=== PATIENT | female | born 1940 | race Caucasian/White ===

== ENCOUNTER 2017-05-08 13:43 | Emergency (ER) | payer OTHER ==
[~2017-05-08] VITALS: Ht 148.6 cm; Wt 55.5 kg
[~2017-05-08 13:43] MED LIST: ACETAMINOPHEN/H1 TA6 PO; ACT15 PO; ACT30 PO; ATORVASTATIN CA40 M1 PO; BG MC; CARVEDILOL25 M1 PO; COL100 PO; CORE25 PO; CYCLOBENZAPRINE5 MG PO; DEXPF IV; DUL10S RC; EDARBI; EDARBI80 MG PO; FER300 PO; FLEXERIL10 MG PO; FUROSEMIDE40 MG PO; GLIPIZIDE2.5 M1 PO; GLIPIZIDE5 MG; GLU5 PO; GOOD SENSE ASPI81 M3 PO; HUMULIN R100 U/1 M1 SC; L40I IV; LAC30L PO; LASIX40 MG PO; LEVOTHYROXIN0.075 M2 PO; LOVASTATIN40 MG PO; LOVAZA1 G1 PO; MIRUD PO; NEP PO; OMEPRAZOLE DR20 M1; OMEPRAZOLE DR20 M1 PO; PEP20 PO; PRI20 PO; PRO30 PO; RENA-VITE1 TAB PO; RENVELA800 M1 PO; TYL325 PO; VITC PO; ZES10 PO; ZES20 PO; ZOFI IV; [UNRECOGNIZED DRUG - OTHER]; [UNRECOGNIZED DRUG - OTHER] PO
[2017-05-08 13:46] VITALS: Ht 148.6 cm; Wt 55.5 kg
[2017-05-08 15:05] LABS: CALCIUM 9.3 mg/dL (8.5-10.1); CARBON DIOXIDE 27.8 mmol/L (21-32); CHLORIDE SERUM 97 mmol/L (98-107); CREATININE SERUM 2.1 mg/dL (0.6-1.0); GLUCOSE SERUM 89 mg/dL (74-106); POTASSIUM SERUM 3.6 mmol/L (3.5-5.1); SODIUM SERUM 133 mmol/L (136-145)
[2017-05-08 15:19] LABS: PLATELET COUNT 103 x10^3mcL (130-400)
[2017-05-08 15:58] LABS: BAND NEUTROPHIL 1 % (0-10); BASOPHIL 0 % (0-2); METAMYELOCTE 2 % (0-2); MONOCYTE 8 % (0-7); SEGMENTED NEUTROPHILS 68 % (37-75)
[2017-05-08 16:00] LABS: rbc morphology (normal/abnorm) ABNORMAL (NORMAL); target cell (codocyte) 2+
[2017-05-08 16:21] VITALS: BP 145/99
== END 2017-05-08 16:44 | disposition home or self-care (01) ==
LOC: ED 13:43
PROVIDERS: Emergency Medicine
DX: T82.838A Hemorrhage due to vascular prosthetic devices, implants and grafts, initial encounter (principal); E11.22 Type 2 diabetes mellitus with diabetic chronic kidney disease; I13.2 Hypertensive heart and chronic kidney disease with heart failure and with stage 5 chronic kidney disease, or end stage renal disease; I50.9 Heart failure, unspecified; N18.6 End stage renal disease; Z99.2 Dependence on renal dialysis; Y92.89 Other specified places as the place of occurrence of the external cause; E03.9 Hypothyroidism, unspecified; E78.00 Pure hypercholesterolemia, unspecified; I73.9 Peripheral vascular disease, unspecified
CPT/HCPCS: 36415

== ENCOUNTER 2017-06-06 17:59 | Inpatient (IN) | payer OTHER ==
[~2017-06-06] VITALS: Ht 144.8 cm; Wt 57.0 kg
[2017-06-06 18:06] VITALS: Ht 144.8 cm; Wt 57.0 kg
[2017-06-06 19:00] LABS: BASOPHIL % 0.6 % (0-2); PLATELET COUNT 130 x10^3mcL (130-400)
[2017-06-06 19:01] LABS: RED CELL DISTRIBUTION WIDTH 17.8 % (11.5-14.5)
[2017-06-06 19:15] LABS: CALCIUM 9.1 mg/dL (8.5-10.1); CARBON DIOXIDE 31.5 mmol/L (21-32); CHLORIDE SERUM 92 mmol/L (98-107); CREATININE SERUM 3.3 mg/dL (0.6-1.0); GLUCOSE SERUM 159 mg/dL (74-106); POTASSIUM SERUM 4.4 mmol/L (3.5-5.1); SODIUM SERUM 134 mmol/L (136-145)
[2017-06-06 19:19] LABS: ALBUMIN 3.8 g/dL (3.4-5.0); ALKALINE PHOSPHATASE 103 U/L (46-116); ALT/SGPT 14 U/L (14-59); AST/SGOT 24 U/L (15-37); BILIRUBIN TOTAL 0.9 mg/dL (0.20-1.00)
[2017-06-06 19:20] LABS: TOTAL PROTEIN, SERUM 8.6 g/dL (6.4-8.2)
[2017-06-06] MEDS ORDERED: GOOD SENSE OMEP20 MG PO (19:38)
[2017-06-06] MEDS ORDERED: CARVEDILOL6.25 M1 PO (19:39)
[2017-06-06] MEDS ORDERED: GLIPIZIDE2.5 M1 PO (19:39)
[2017-06-06] MEDS ORDERED: TIROSINT75 MC1 PO (19:39)
[2017-06-06] MEDS ORDERED: ACT30 PO (19:39)
[2017-06-06] MEDS ORDERED: LOSARTAN POTASS25 M1 PO (19:40)
[2017-06-06] MEDS ORDERED: PRO60 PO (19:41)
[2017-06-06] MEDS ORDERED: RENA-VITE1 TAB PO (19:41)
[2017-06-06] MEDS ORDERED: FUROSEMIDE40 MG PO (19:41)
[2017-06-06] MEDS ORDERED: LOVAZA1 G1 PO (19:41)
[2017-06-06] MEDS ORDERED: STOOL SOFT-STI1 EACH PO (19:42)
[2017-06-06] MEDS ORDERED: RENVELA800 M1 PO (19:42)
[2017-06-06] MEDS ORDERED: LOVASTATIN40 MG PO (19:42)
[2017-06-06 20:08] VITALS: BP 165/109
[2017-06-06 20:24] LABS: FREE T4 1.92 ng/dL (0.76-1.46)
[2017-06-06 20:26] LABS: FREE THYROXINE INDEX 5.4 ug/dL (1.4-4.5); T4(THYROXINE) 15.8 ug/dL (4.7-13.3)
[2017-06-06 21:13] LABS: MAGNESIUM 2.5 mg/dL (1.8-2.4); PHOSPHOROUS 3.4 mg/dL (2.5-4.9)
[2017-06-06 21:16] LABS: CHOLESTEROL/HDL RATIO 1.6
[2017-06-06 21:26] LABS: T3 TOTAL 0.77 ng/mL
[2017-06-07 03:28] LABS: BASOPHIL % 0.5 % (0-2)
[2017-06-07 03:33] LABS: PLATELET COUNT 95 x10^3mcL (130-400); RED CELL DISTRIBUTION WIDTH 18.3 % (11.5-14.5)
[2017-06-07 03:36] LABS: CALCIUM 8.7 mg/dL (8.5-10.1); CARBON DIOXIDE 30.3 mmol/L (21-32); CHLORIDE SERUM 94 mmol/L (98-107); CREATININE SERUM 3.6 mg/dL (0.6-1.0); GLUCOSE SERUM 60 mg/dL (74-106); MAGNESIUM 2.4 mg/dL (1.8-2.4); PHOSPHOROUS 3.6 mg/dL (2.5-4.9); POTASSIUM SERUM 4.3 mmol/L (3.5-5.1); SODIUM SERUM 128 mmol/L (136-145)
[2017-06-07 06:58] VITALS: BP 139/45
[2017-06-07 07:50] VITALS: BP 149/49
[2017-06-07 13:18] VITALS: BP 201/55
[2017-06-07 15:05] VITALS: BP 145/42
[2017-06-07 18:40] VITALS: BP 205/72
[2017-06-07 21:32] VITALS: BP 156/73
[2017-06-08] VITALS: BP 149/79
[2017-06-08 06:10] VITALS: BP 158/72
[2017-06-08 08:18] LABS: CARBON DIOXIDE 30.7 mmol/L (21-32); CHLORIDE SERUM 100 mmol/L (98-107); CREATININE SERUM 2.4 mg/dL (0.6-1.0); GLUCOSE SERUM 89 mg/dL (74-106); PHOSPHOROUS 2.6 mg/dL (2.5-4.9); POTASSIUM SERUM 3.4 mmol/L (3.5-5.1); SODIUM SERUM 138 mmol/L (136-145)
[2017-06-08 08:36] LABS: PLATELET COUNT 96 x10^3mcL (130-400); RED CELL DISTRIBUTION WIDTH 18.2 % (11.5-14.5)
[2017-06-08 11:08] VITALS: BP 109/75
[2017-06-08 11:33] LABS: BAND NEUTROPHIL 3 % (0-10); BASOPHIL 0 % (0-2); MONOCYTE 10 % (0-7); SEGMENTED NEUTROPHILS 73 % (37-75)
[2017-06-08 11:34] LABS: rbc morphology (normal/abnorm) ABNORMAL (NORMAL); target cell (codocyte) 1+
[2017-06-08 15:17] VITALS: BP 187/58
[2017-06-08 16:59] VITALS: BP 173/71
[2017-06-08 21:16] VITALS: BP 138/69
[2017-06-09 06:03] VITALS: BP 156/65
[2017-06-09 06:37] LABS: CALCIUM 9.1 mg/dL (8.5-10.1); CHLORIDE SERUM 98 mmol/L (98-107); CREATININE SERUM 3.4 mg/dL (0.6-1.0); GLUCOSE SERUM 102 mg/dL (74-106); MAGNESIUM 2.1 mg/dL (1.8-2.4); POTASSIUM SERUM 3.7 mmol/L (3.5-5.1); SODIUM SERUM 137 mmol/L (136-145)
[2017-06-09 07:12] LABS: PLATELET COUNT 96 x10^3mcL (130-400); RED CELL DISTRIBUTION WIDTH 17.8 % (11.5-14.5)
[2017-06-09 09:15] VITALS: BP 169/83
[2017-06-09 09:43] LABS: ATYPICAL LYMPH 1 %; BAND NEUTROPHIL 1 % (0-10); BASOPHIL 1 % (0-2); MONOCYTE 8 % (0-7); SEGMENTED NEUTROPHILS 83 % (37-75)
[2017-06-09 09:49] LABS: PLATELET MORPHOLOGY PLATELETS DECREASED; rbc morphology (normal/abnorm) ABNORMAL (NORMAL); schistocyte (helmet cell) 1+
[2017-06-09 12:26] VITALS: BP 103/42
[2017-06-09 18:18] VITALS: BP 168/55
[2017-06-09 22:11] VITALS: BP 149/57
[2017-06-10 05:00] VITALS: BP 161/48
[2017-06-10 06:41] LABS: CALCIUM 8.8 mg/dL (8.5-10.1); CARBON DIOXIDE 24.9 mmol/L (21-32); CHLORIDE SERUM 95 mmol/L (98-107); GLUCOSE SERUM 227 mg/dL (74-106); MAGNESIUM 2.3 mg/dL (1.8-2.4); PHOSPHOROUS 3.6 mg/dL (2.5-4.9); POTASSIUM SERUM 4.2 mmol/L (3.5-5.1); SODIUM SERUM 134 mmol/L (136-145)
[2017-06-10 07:25] LABS: CREATININE SERUM 4.4 mg/dL (0.6-1.0)
[2017-06-10 08:03] LABS: BASOPHIL % 0 % (0-2); PLATELET COUNT 96 x10^3mcL (130-400); RED CELL DISTRIBUTION WIDTH 17.5 % (11.5-14.5)
[2017-06-10 10:13] VITALS: BP 150/57
[2017-06-10 10:59] LABS: PLATELET COUNT 103 x10^3mcL (130-400); RED CELL DISTRIBUTION WIDTH 17.2 % (11.5-14.5)
[2017-06-10 11:00] LABS: BASOPHIL % 0 % (0-2)
[2017-06-10 12:51] VITALS: BP 119/72
[2017-06-10 18:10] VITALS: BP 128/34
[2017-06-10 22:14] VITALS: BP 142/56
[2017-06-11 06:37] VITALS: BP 108/72
[2017-06-11 07:36] LABS: CALCIUM 9.2 mg/dL (8.5-10.1); CARBON DIOXIDE 26.5 mmol/L (21-32); CHLORIDE SERUM 101 mmol/L (98-107); CREATININE SERUM 2.6 mg/dL (0.6-1.0); GLUCOSE SERUM 127 mg/dL (74-106); MAGNESIUM 1.9 mg/dL (1.8-2.4); PHOSPHOROUS 2.4 mg/dL (2.5-4.9); SODIUM SERUM 140 mmol/L (136-145)
[2017-06-11 07:52] LABS: POTASSIUM SERUM 2.7 mmol/L (3.5-5.1)
[2017-06-11 08:14] LABS: BASOPHIL % 0 % (0-2); PLATELET COUNT 96 x10^3mcL (130-400); RED CELL DISTRIBUTION WIDTH 18.2 % (11.5-14.5)
[2017-06-11] MEDS ORDERED: ALBUTEROL SULFAT3 M3 IH (10:11)
[2017-06-11] MEDS ORDERED: MEDDP PO (10:13)
[2017-06-11 11:13] VITALS: BP 108/72
[2017-06-11 11:46] VITALS: BP 155/111
[2017-06-11 14:25] LABS: CALCIUM 9.1 mg/dL (8.5-10.1); CARBON DIOXIDE 28.2 mmol/L (21-32); CHLORIDE SERUM 101 mmol/L (98-107); CREATININE SERUM 3.1 mg/dL (0.6-1.0); GLUCOSE SERUM 288 mg/dL (74-106); POTASSIUM SERUM 4.4 mmol/L (3.5-5.1); SODIUM SERUM 139 mmol/L (136-145)
== END 2017-06-11 16:30 | disposition home health service (06) | DRG 177 ==
LOC: ED 17:59 → DU 19:26
PROVIDERS: Family Medicine; Family Medicine Sports Medicine
PROC: 5A1D70Z Performance of Urinary Filtration, Intermittent, Less than 6 Hours Per Day (ICD-10-PCS; principal; 2017-06-07)
PROC: 5A1D70Z Performance of Urinary Filtration, Intermittent, Less than 6 Hours Per Day (ICD-10-PCS; 2017-06-10)
DX: J69.0 Pneumonitis due to inhalation of food and vomit (principal); I50.43 Acute on chronic combined systolic (congestive) and diastolic (congestive) heart failure; N17.0 Acute kidney failure with tubular necrosis; N18.6 End stage renal disease; J96.01 Acute respiratory failure with hypoxia; I13.2 Hypertensive heart and chronic kidney disease with heart failure and with stage 5 chronic kidney disease, or end stage renal disease; E87.1 Hypo-osmolality and hyponatremia; I69.354 Hemiplegia and hemiparesis following cerebral infarction affecting left non-dominant side; Z68.1 Body mass index [BMI] 19.9 or less, adult; D61.818 Other pancytopenia; D84.9 Immunodeficiency, unspecified; I16.0 Hypertensive urgency; K21.9 Gastro-esophageal reflux disease without esophagitis; E11.22 Type 2 diabetes mellitus with diabetic chronic kidney disease; D63.1 Anemia in chronic kidney disease; E78.5 Hyperlipidemia, unspecified; E03.9 Hypothyroidism, unspecified; Z99.2 Dependence on renal dialysis; Z79.4 Long term (current) use of insulin; E11.649 Type 2 diabetes mellitus with hypoglycemia without coma; E83.39 Other disorders of phosphorus metabolism; E11.42 Type 2 diabetes mellitus with diabetic polyneuropathy; K59.09 Other constipation; E83.41 Hypermagnesemia; E66.9 Obesity, unspecified; E11.51 Type 2 diabetes mellitus with diabetic peripheral angiopathy without gangrene; E87.6 Hypokalemia; M85.80 Other specified disorders of bone density and structure, unspecified site; M81.0 Age-related osteoporosis without current pathological fracture; Z74.01 Bed confinement status
CPT/HCPCS: 36600; 82962; 83880; 84439; 92526-GN; 92610-GN; 94150; A4719; J0360; J1644; J1940; J2543; J2920; J2930; J3480; J7030; J7050; J7620; J7633; Q0092

== ENCOUNTER 2018-09-05 00:49 | Inpatient (IN) | payer OTHER ==
[~2018-09-05] VITALS: Ht 144.8 cm; Wt 45.8 kg
[~2018-09-05 00:49] MED LIST changes: +ALBUTEROL SULFAT3 M3 IH; +CARVEDILOL6.25 M1 PO; +GOOD SENSE OMEP20 MG PO; +LOSARTAN POTASS25 M1 PO; +MEDDP PO; +PRO60 PO; +STOOL SOFT-STI1 EACH PO; +TIROSINT75 MC1 PO
[2018-09-05 00:59] VITALS: Ht 144.8 cm; Wt 45.8 kg
--- NOTE | 2018-09-05 01:09 | NUR ---
PT BIB [facility] AND PLACED IN BED, VS DONE AND PT PLACED ON MONITOR. PT AAOX4 WITH C/O SOB SINCE YESTERDAY S/P DIALYSIS. PT DENIES ANY RECENT RESP ILLNESS, FEVERS, OR N/V/D/C. PT IS ANURIC DUE TO ESRD WITH DIALYSIS ACCESS TO THE RT UPPER EXTREMITY, WNL. PT ALSO NOTED WITH DISCOLORATION TO BLE AND GENERALIZED WEAKNESS. PT WITH HOME O2, AND IS 96% ON 3L WITH DIMINISHED BREATH SOUNDS TO CONRAD BASES. PER MEDICS, PT'S SON NOTED PT TO BE SOB AND CALLED 911 WITH O2 SAT OF 92% UPON ARRIVAL. NO SIGNS OF DISTRESS AT THIS TIME.
[2018-09-05 02:37] LABS: CALCIUM 9.2 mg/dL (8.5-10.1); CARBON DIOXIDE 29.1 mmol/L (21-32); CHLORIDE SERUM 100 mmol/L (98-107); CREATININE SERUM 3.3 mg/dL (0.6-1.0); GLUCOSE SERUM 139 mg/dL (74-106); POTASSIUM SERUM 4.6 mmol/L (3.5-5.1); SODIUM SERUM 139 mmol/L (136-145)
[2018-09-05 02:42] LABS: ALKALINE PHOSPHATASE 120 U/L (46-116); ALT/SGPT 10 U/L (14-59); AST/SGOT 15 U/L (15-37); BILIRUBIN TOTAL 0.73 mg/dL (0.20-1.00); TOTAL PROTEIN, SERUM 7.4 g/dL (6.4-8.2)
[2018-09-05 02:46] LABS: ALBUMIN 3.3 g/dL (3.4-5.0)
[2018-09-05 02:51] LABS: BASOPHIL % 0 % (0-2); PLATELET COUNT 140 x10^3mcL (130-400); RED CELL DISTRIBUTION WIDTH 18.7 % (11.5-14.5)
--- NOTE | 2018-09-05 03:24 | NUR ---
SPOKE WITH PT DAUGHTER ABOUT COLLECTION OF URINE. PT DAUGHTER VERBALIED PT IS ANURIC. CURRENTLY ON DIALYSIS
[2018-09-05] MEDS ORDERED: BAYER ASPIRIN R81 MG PO (03:34)
[2018-09-05] MEDS ORDERED: NIFEDIPINE60 MG PO (03:37)
[2018-09-05] MEDS ORDERED: NIFEDIPINE30 MG PO (03:37)
[2018-09-05] MEDS ORDERED: EPZICOM1 TAB (03:37)
[2018-09-05] MEDS ORDERED: CARVEDILOL25 M1 PO (03:39)
[2018-09-05] MEDS ORDERED: EDARBI80 MG PO (03:42)
[2018-09-05 03:48] LABS: MAGNESIUM 2.4 mg/dL (1.8-2.4); PHOSPHOROUS 2.7 mg/dL (2.5-4.9)
--- NOTE | 2018-09-05 05:15 | NUR ---
REPORT GIVEN TO JOYCE TO ASSUME CARE OF PT. PT IS ALERT AND ORIENTED. NO S/S OF DISTRESS. RESPIRATIONS ARE EVEN AND UNLABORDED. PT ON O2 AT 2%. VITALS STABLE
--- NOTE | 2018-09-05 05:20 | NUR ---
RECIEVED PT FROM ED NURSE VIA SAMMY PT IS A/O X4 [place] SPEAKING. PT IS ON TELE # 41 SR WITH FIRST DEGREE AV BLOCK. HR AT 69. PT HAS WEAK LUE, LLE PULSES. EDEMA NOTED ON THE BLE. PT DENIES ANY CHEST PAIN OR SOB AT THIS TIME. PT IS ON 2L NC O2 SAT 94%. LUNG SOUNDS ARE WHEEZES TO LEFT SIDE AND DIMINISHED ON RIGHT. PT BREATHING IS EVEN AND LABORED ON EXPIRATORY. LAST BM 09/04 AND FORMED. ACTIVE BOWEL SOUND PRESENT. PT IS ANURIC, HD ON T,TH, SAT. PT HAD AV SHUNT TO RIGHT ARM. BRUIT AND SHUNT PRESENT. PT IS ON 1200 CC/DAY FLUID RESTIRCTIONS. PT IS W/C BOUND, PARALYZED ON LEFT SIDE DUE TO HX OF STROKE. NO C/O OF PAIN AT THIS TIME. PT IV TO THE LAC CDI. WILL CONT TO MONITOR. CALL LIGHT WITHIN REACH.
[2018-09-05 05:52] VITALS: BP 158/58
[2018-09-05 06:40] LABS: BASOPHIL % 0.4 % (0-2); PLATELET COUNT 144 x10^3mcL (130-400)
[2018-09-05 06:58] LABS: CALCIUM 9.1 mg/dL (8.5-10.1); CHLORIDE SERUM 100 mmol/L (98-107); CREATININE SERUM 3.3 mg/dL (0.6-1.0); GLUCOSE SERUM 112 mg/dL (74-106); POTASSIUM SERUM 4.7 mmol/L (3.5-5.1); SODIUM SERUM 139 mmol/L (136-145)
--- NOTE | 2018-09-05 07:21 | NUR ---
PT IS ASLEEP IN BED. PT ON TELE #41 SR WITH FIRST DEGRE AV BLOCK. NO CHEST PAIN OR SOB AT THIS TIME. PT IS ON 2L NC O2 SAT 94%. BREATHING IS EVEN AND UNLABORED. NO RESP DISTRESS NOTED.PT AV SHUNT TO R UPPER ARM INTACT, THRILL AND BRUIT PRESENT. PT IS ANURIC, AST HD WAS 09/03. PT IV TO LAC INFUSING WELL. PT WAS COOPERATIVE WITH NURSING CARE. PT IS W/C BOUND, PARALYZED ON LEFT SIDE. FALL PERCUTIONS IN PLACE, BED SET AT LOW LEVEL. WILL ENDORSE CARE TO AM NURSE.
[2018-09-05 07:41] LABS: RED CELL DISTRIBUTION WIDTH 19.2 % (11.5-14.5)
[2018-09-05] MEDS ORDERED: LOSARTAN POTASS25 M1 PO (08:17)
[2018-09-05] MEDS ORDERED: HYDRALAZINE HCL25 MG PO (08:21)
[2018-09-05 08:37] VITALS: BP 188/51
--- NOTE | 2018-09-05 09:00 | NUR ---
ALERT AND ORIENTED. [place] SPEAKING. FAMILY AT BEDSIDE AND UNDERSTANDS YEMENI WELL. VERY SUPPORTIVE AND HELPFUL TO PT. FINISHING UP BREATHING TX PLACED PT ON 3L NC. DENIES ANY PAIN. FAMILY WILL SPOON FEED PT. GENERALZIED WEAKNESS. TOTAL CARE. SPOKE WITH DEWAYNE THIS AM RE: HD FOR TODAY. CONSENT SIGNED. ANURIC. ORIENTED TO CALL LIGHT. REPOSITIONED PT.
--- NOTE | 2018-09-05 10:24 | NUR ---
PAGED RESIDENT FOR TROP 0,201.
--- NOTE | 2018-09-05 10:32 | NUR ---
P.T. NOTES P.T. EVAL COMPLETED; PATIENT AT HER BASELINE [facility] MOBILITY; NON AMBULATORY DOES NOT PROPEL W/C; USES [facility] LIFT FOR W/C TRANSFERS AT HOME; ENDORSED TO NURSING FOR MOBILITY ASSIST.
--- NOTE | 2018-09-05 12:38 | NUR ---
SPOKE WITH US SOAP BOILER. US THORACENTESIS WILL BE FRIDAY. SPOKE WITH RESIDENT AFTER 5 PAGES RE: TROP 0.201. PT HAS ORDER FOR DR. PEDROZA.
--- NOTE | 2018-09-05 13:45 | NUR ---
DR. FONSECA FOUND ME AT [facility]. HE HAD BEEN INFORMED I WAS TRYING TO CONTACT HIM WITH NO RESULT THIS AM. THE NUMBER MEDGORDO WAS USING WAS NOT THE CORRECT NUMBER FOR DR. DID ADDRESS ALL CONCERNS FOR THE PT.
--- NOTE | 2018-09-05 17:00 | NUR ---
PT PULLED OUT IV. LIMITED TO USE OF LEFT ARM FOR IV. VERY HARD STICK.
[2018-09-05 17:49] VITALS: BP 168/90
--- NOTE | 2018-09-05 18:16 | NUR ---
PAGED RESIDENT TO SEE IF LASIX IV CAN BE CHANGED TO PO PT STILL DOES NOT HAVE IV ACCESS.
--- NOTE | 2018-09-05 18:51 | NUR ---
RETURNED TELE # 41 TO TELE [facility].
--- NOTE | 2018-09-05 18:57 | NUR ---
ATTEMPTED TO REINSERT NEW IV WITHOUT SUCCESS. SPOKE WITH NIGHT RESOURCE NURSE WHO SAID SHE WILL TRY LATER WHEN SHE GETS A CHANCE. PT TO HAVE DIALYSIS TODAY. DIALYSIS NURSE HERE NOT STARTED YET. THORACENTESIS WILL BE PERFORMED TOMORROW OR FRIDAY. WAITING TO SEE HOW PT IS AFTER DIALYSIS. LABORED BREATHING. RT PROTOL NC 3L. CALL LIGHT WITHIN REACH.
--- NOTE | 2018-09-05 19:20 | NUR ---
CARE ASSUMED FROM OUTGOING RN. PT RESTING COMFORTABLY IN BED. FAMILY AT BEDSIDE. NO ACUTE DISTRESS NOTED. EVEN AND UNLABORED RESPIRATIONS ON 3LNC. IV PATENT AND INTACT WITH FLUIDS RUNNING PER EMAR. AV SHUNT TO THE R ARM NOTED. BED IN LOWEST POSITION. SIDE RAILS UPX2. CALL LIGHT WITHIN REACH. WILL CONTINUE TO MONITOR.
[2018-09-05 20:42] VITALS: BP 154/68
--- NOTE | 2018-09-05 22:49 | NUR ---
LITIGATION SPECIALIST AT BEDSIDE. HD STARTED. WILL CONTINUE TO MONITOR.
[2018-09-06] VITALS (7 sets, daily range): BP systolic 82–181; BP diastolic 33–71
--- NOTE | 2018-09-06 02:23 | NUR ---
HEMODIALYSIS COMPLETE. 2L OUTPUT. PT RESTING IN BED. FAMILY AT BEDSIDE. PT TOLERATED WELL. NO SOB ON 3LNC. BED IN LOWEST POSITION. SIDE RAILS UPX2. CALL LIGHT WITHIN REACH. WILL CONTINUE TO MONITOR.
--- NOTE | 2018-09-06 04:00 | NUR ---
NOTED SMALL DRAINAGE OF BLOOD TO AV FISTULA. PRESSURE APPLIED. BEHAVIORAL SPECIALIST CONTACTED RUG MEASURER BUCHANAN. INSTRUCTED TO PLACE CONTINUOUS PRESSURE AROUND SITE AND NOT TO OPEN DRESSING. MARKED DRAINAGE AMOUNT WITH MARKER. CONTINUOUS PRESSURE APPLIED. PT TOLERATING WELL. ON 3LNC. DAUGHTER AT BEDSIDE. BED IN LOWEST POSITION. SIDE RAILS UPX2. CALL LIGHT WITHIN REACH. WILL CONTINUE TO MONITOR AND REASSESS SITE FOR BLEEDING.
--- NOTE | 2018-09-06 04:45 | NUR ---
CONTINUOUS PRESSURE REMOVED. NO NEW DRAINAGE NOTED ON DRESSING. PT RESTING COMFORTABLY IN BED. DAUGHTER AT BEDSIDE. ON 3LNC. IV PATENT AND INTACT. BED IN LOWEST POSITION. SIDE RAILS UPX2. CALL LIGHT WITHIN REACH. WILL CONTINUE TO MONITOR.
--- NOTE | 2018-09-06 06:36 | NUR ---
PT SLEPT COMFORTABLY IN INTERVALS THROUGHOUT THE SHIFT. HEMODIALYSIS PERFORMED WITH 2L OUTPUT. SMALL AMOUNT OF BLEEDING NOTED TO AV FISTULA POST HD. PRESSURE APPLIED, NO BLEEDING NOTED AT THIS TIME. ON 3LNC TOLERATING WELL. DAUGHTER AT BEDSIDE. IV PATENT AND INTACT RUNNING FLUIDS PER EMAR. ALL NEEDS TENDED TO AND MET. ALL SCHEDULED MEDICATIONS GIVEN. BLOOD SUGARS CHECKED, NO INSULIN COVERAGED NEEDED. BED IN LOWEST POSITION. SIDE RAILS UPX2. CALL LIGHT WITHIN REACH. WILL ENDORSE TO ONCOMING SHIFT.
--- NOTE | 2018-09-06 08:06 | NUR ---
RECEIVED HAND OFF REPORT FROM NIGHT NURSE. FOUND PATIENT LEFT SIDED LAYING WITH FAMILY AT BEDSIDE. PATIENT RESTING EYES CLOSED AND BREATHING REGULAR AND UNLABORED. 3L O2 VIA NC, RIGH ARM AV SHUNT NOTED COVERED WITH GAUZE SMALL AMOUNT OF DRAINAGE ON DRESSING WITHIN MARKINGS. IV TO LEFT AC, REINFORCED WITH COBAND TO REDUCE CHANCE OF PULLING. FAMILY ASKED THAT WE LET THE PATIENT SLEEP. CALL LIGHT WITHIN REACH, BED IN LOWEST POSTION
--- NOTE | 2018-09-06 09:25 | NUR ---
ADMINISTERED MEDICATIONS PER APR. HELD BP MED FOR LOW BP. FAMILY AT BEDSIDE. CALL LIGHT WITHIN REACH. BED IN LOWEST POSTION
--- NOTE | 2018-09-06 11:20 | NUR ---
REMOVED SOILED PRESSURE DRESSING FROM RIGHT AV SHUNT. SITE WNL, NO BLEEDING SWELLING OR DISCHARGE. GOOD BRUIT AND THRILL. PATIENT IN NO PAIN. INFORMED COVERAGE NURSE FROM DEWAYNE LOUIE OF BRESSING REMOVAL AND NO BLEEDING. INFORMED OF FAMILY REQUEST TO NOT HAVE SAME NURSE FOR NEXT DIALYSIS TREATMENT.
[2018-09-06 12:46] LABS: BASOPHIL % 0.1 % (0-2); PLATELET COUNT 141 x10^3mcL (130-400)
[2018-09-06 12:47] LABS: RED CELL DISTRIBUTION WIDTH 18.5 % (11.5-14.5)
[2018-09-06 13:04] LABS: CARBON DIOXIDE 29.5 mmol/L (21-32); CHLORIDE SERUM 102 mmol/L (98-107); CREATININE SERUM 2.1 mg/dL (0.6-1.0); GLUCOSE SERUM 122 mg/dL (74-106); MAGNESIUM 2.1 mg/dL (1.8-2.4); PHOSPHOROUS 2.4 mg/dL (2.5-4.9); POTASSIUM SERUM 4.2 mmol/L (3.5-5.1); SODIUM SERUM 139 mmol/L (136-145)
--- NOTE | 2018-09-06 13:05 | NUR ---
ADMINISTERED MEDICATION PER MAR. PATIENT SITTIN UP IN BED WITH FAMILY AT BEDSIDE. PATIENT STABLE WITH NO COMPLAINTS. CALL LIGHT WITHIN REACH, BED IN LOWEST POSITION. WILL CONTINUE TO MONITOR
--- NOTE | 2018-09-06 14:09 | NUR ---
PATIENT LAYING SUPINE IN BED WITH FAMILY AT BEDSIDE, PATIENT IN NO DISTRESS, NO COMPLAINTS. DAUGHTER WANTED TO TALK WITH DR FONSECA ABOUT PATIENT AND POTENTIAL PROCEDURE. WILL PAGE
--- NOTE | 2018-09-06 16:36 | NUR ---
ADMINSITERED MEDICAITON PER APR. BG RESULT WAS 89, NO COVERAGE INDICATED. VS TAKEN BY REGISTRAR COLLEGE OR UNIVERSITY, REPORTED STABLE. PATIENT RESTING COMFORTABLY WITH FAMILY AT BEDSIDE. ANSWERED DAUGHTER'S QUESTIONS ABOUT THORACENTISIS WILL ENDORSE TO NEXT SHIFT THAT DAUGHTER REQUESTS CALL TO BE HERE WHEN PROCEDURE IS SCHEDULED. CALL LIGHT WITHIN REACH, WILL CONTINUE TO MONITOR
--- NOTE | 2018-09-06 17:47 | NUR ---
CALLED RESIDENT CALL PHONE, SPOKE WITH DR GROSS AND INFORMERED HER WE HAVE BEEN TRYING TO REACH DR FONSECA TO ASK ABOUT A PTT/INR DRAW FROM AM FOR PATIENT IN PREP FOR THORACENTESIS TOMORRW. WELL UPDATE HIM ON PATIENT CONDITION, BLOOD PRESURE HAS COME UP TO PATIENT NORM AND ASK IF HE WANTED TO REMOVE THE HOLD ON PO BLOOD PRESSURE MEDICATIONS. DR GROSS STATED SHE WILL IN FOR DR FONSECA
--- NOTE | 2018-09-06 20:24 | NUR ---
PT CURRENTLY RESTING IN BED, NO ACUTE DISTRESS. A/O X4. NO TELE, MED/SURG. DENIES CHEST PAIN. PULSES PALPABLE IN ALL EXTREMITIES, NO EDEMA NOTED. LUNG SOUNDS DIMINISHED BILATERALLY, DENIES SOB. O2 VIA NC AT 3L. BOWEL SOUNDS ACTIVE, LAST BM 09/05/18. ANURIC. RUE AV SHUNT NOTED, HD 09/05/18, 2L OUT. GENERALIZED WEAKNESS. LEFT SIDED DEFICITS DUE TO PREVIOUS CVA. SKIN INTACT. IV PATENT AND INTACT. BED IN LOWEST POSITION, SIDE RAILS UP X2, CALL LIGHT WITHIN REACH. WILL CONTINUE TO MONITOR.
--- NOTE | 2018-09-06 22:27 | NUR ---
BP 174/46, NO ACUTE DISTRESS. DR CASTELLANO INFORMED. WILL CONTINUE TO MONITOR.
--- NOTE | 2018-09-06 23:58 | NUR ---
PT CURRENTLY RESTING IN BED, NO ACUTE DISTRESS. WILL CONTINUE TO MONITOR.
[2018-09-07] VITALS (10 sets, daily range): BP systolic 11–193; BP diastolic 26–89
[2018-09-07 00:37] LABS: T3 TOTAL 0.56 ng/mL
[2018-09-07 00:39] LABS: FREE T4 1.57 ng/dL (0.76-1.46); FREE THYROXINE INDEX 3.9 ug/dL (1.4-4.5); T4(THYROXINE) 11.7 ug/dL (4.7-13.3)
--- NOTE | 2018-09-07 05:07 | NUR ---
PT C/O SOB, RT NOTIFIED FOR TREATMENT. WILL CONTINUE TO MONITOR.
--- NOTE | 2018-09-07 06:24 | NUR ---
PT SLEPT PERIODICALLY THROUGHOUT NIGHT, NO ACUTE DISTRESS. FAMILY AT BEDSIDE. ALL NEEDS MET AND ATTENDED TO. NO SIGNIFICANT CHANGES. IV PATENT AND INTACT. BED IN LOWEST POSITION, SIDE RAILS UP X2, CALL LIGHT WITHIN REACH. WILL ENDORSE CARE TO ONCOMING NURSE.
[2018-09-07 06:59] LABS: T3 TOTAL 0.45 ng/mL
[2018-09-07 07:04] LABS: FREE T4 1.54 ng/dL (0.76-1.46); FREE THYROXINE INDEX 3.5 ug/dL (1.4-4.5); T4(THYROXINE) 9.6 ug/dL (4.7-13.3)
[2018-09-07 07:09] LABS: CALCIUM 9.1 mg/dL (8.5-10.1); CARBON DIOXIDE 24.4 mmol/L (21-32); CHLORIDE SERUM 103 mmol/L (98-107); CREATININE SERUM 2.8 mg/dL (0.6-1.0); GLUCOSE SERUM 106 mg/dL (74-106); MAGNESIUM 2.3 mg/dL (1.8-2.4); PHOSPHOROUS 2.5 mg/dL (2.5-4.9); POTASSIUM SERUM 4.2 mmol/L (3.5-5.1); SODIUM SERUM 141 mmol/L (136-145)
--- NOTE | 2018-09-07 08:00 | NUR ---
RECEIVED PATIENT ALERT/ORIENTED X3; ABLE TO MADE NEEDS KNOWN. BREATHING SOUND DIMINISHED CONRAD BASES. O2 SAT 93% ON 3L VIA N/C. ON RENAL DIET. TOELRATED. H/D PATIENT. AV SHUNT TO RUE. THRILL (+)/BRUIT (+). ANURIC. HAD SMALL BM LAST SHIFT. IVF OF NS TKO TO LAC. SKIN INTACT. BED BOUND W/ LT SIDE WEAKNESS DUE TO PREVIOUS CVA. FAMILY AT BED SIDE. GOOD FAMILY SUPPORT. CALL LIGHT IN REACH.
[2018-09-07 08:06] LABS: PLATELET COUNT 136 x10^3mcL (130-400)
[2018-09-07 08:07] LABS: BASOPHIL % 0 % (0-2); RED CELL DISTRIBUTION WIDTH 18.9 % (11.5-14.5)
--- NOTE | 2018-09-07 09:45 | NUR ---
U/S GUIDE LT THORACENTESIS DONE. 1L FLUID OUT. DENIED PAIN. B/P = 183/66; P= 72. ANTIHYPERTENSIVE MEDS GIVEN. CONTINUE MONITOR.
--- NOTE | 2018-09-07 11:22 | NUR ---
RESUMED PATIENT CARE. PATIENT RESTING COMFORTABLY IN BED, NO DISTRESS NOTED, FAMILY DAUGHTER AT BEDSIDE. DUE MEDICATION GIVEN, TOLERATED WELL. ALL NEEDS ATTENDED TO, SAFETY PRECAUTIONS MAINTAINED. WILL MONITOR.
--- NOTE | 2018-09-07 12:00 | NUR ---
REPORT GIVEN TO PETERSON LOUIE, ALL QUESTIONS AND CONCERNS ADDRESSED. ALL CARES ENDORSED.
--- NOTE | 2018-09-07 12:00 | NUR ---
ENDORSED CARE TO LIBAN WINKLER. REPORT GIVEN.
--- NOTE | 2018-09-07 12:34 | NUR ---
RECEIVED PT WITH BP 184/50. I NOTIFIED DR HALEY AND SHE STATED BP HAD NOT BEEN REPORTED BY PREVIOUS NURSE. REASSESSED BP: 193/46. I NOTIFIED DR HALEY OF BP 193/46. ORDERED, HYDRALAZINE IVP GIVEN OVER 5 MINS. BEFORE AND AFTER TELE MONITOR STRIPS PRINTED. WILL CONT TO MONITOR.
[2018-09-07 13:28] LABS: SOURCE FLUID THORACENTESIS
[2018-09-07 13:31] LABS: APPEARANCE FLUID HAZY; COLOR FLUID YELLOW; SITE FLUID LEFT
[2018-09-07 13:32] LABS: LYMPHOCYTE FLUID 68 %; MONOCYTE FLUID 8 %; RBC FLUID 997 /cumm; WBC FLUID 18 /cumm
--- NOTE | 2018-09-07 13:34 | NUR ---
BP RECHECKED AFTER GIVING HYDRALAZINE IVP: BP 181/[address] HALEY NOTIFIED AND ORDERED TO GIVE HYDRALAZINE PO IN 1 HR.
--- NOTE | 2018-09-07 13:51 | NUR ---
Initial Nutrition Assessment: 207/B BOBBY CRUZ IA HR Dx: SOB x 2 day, generalized weakness, acute coronary syndrome, pleural effusion PMHx: ESRD (TTS), CHF,HTN, DM, CVA with L sided paralysis, GERD, wheelchair bound PSHx: Other (ORIF Right Ankle, Left femur) Labs: BUN 20H, CREAT 2.8H Meds: Colace, D 50%, humulin, Lipitor, norco, renagel, synthyroid, zofran Diet: Renal PO Intake: (09/07) breakfast 40%, (09/06) lunch 25%, breakfast 30% Ht: 177.78 cm (57") Wt: 45.8 kg (101#) BMI: 21.9 kg/m2 Bed scale: 100.4# IBW: 85# (38.6 kg) %IBW: 118 UBW: 107# Age: 78/F Food Allergies: NKFA Skin: intact Shai: 15 Edema: none GI: Last BM: 09/05/18 Per H&P, Pt is a 69-year-old female with PMH of ESRD (TTS), CHF, HTN, DM, CVA with L sided paralysis complaint of orthopnea and dyspnea on exertion which got progressively worse over the past 2 days[address] RDN Visit (09/07): Patient appeared severely emaciated and malnourished. Patient's daughter was at bedside. She said that patient ate oatmeal this morning but her appetite is poor. She also mentioned that patient has been gradually losing weight unintentionally. Patient also has chronic constipation problem and consumes a stool softener daily. Patient is wheelchair bound. FNS received consult for PCM, ESRD. Discussed recommendations with Dr. Carpio. Problem with: N/V/D/C: constipation Problems with: Chewing/Swallowing: none Current appetite: poor Recent wt change: lost 6# x ~ 1 month %wt change: 5.6 Vitamin/Supplement use: none Special diet at home: renal Physical activity: wheelchair bound Nutrition education given: [facility] handout on "DM and CKD stages 1 through 4: nutritional guidelines" was provided and low potassium, low phosphorus diet was discussed. Food-drug interactions: Colace- high fiber w/6769-7641 ml fluids Education given: yes Estimated Nutritional Needs Based on actual body weight 45.8 kg Energy: 1885-2543 kcal/d (30-35 kcal/kg) Protein: 55-69 g/d (1.2-1.5 g/kg) - HD Fluid: 7300-5588 ml/d (1 ml/kcal) or per doctor Nutrition Diagnosis 1. Malnutrition related to ESRD/dialysis as evidenced by muscle wasting and BMI 21.9 kg/m2 (considered underweight for geriatric age). Intervention 1. Recommend Renal (CCHO) diet. 2. Recommend Nepro BID. Monitor/Evaluate Goal: PO intake at least 75% of estimated needs Monitor: PO intake, Labs, GI function F/U in 2-3 days as high risk 09/09-
--- NOTE | 2018-09-07 13:52 | NUR ---
1. Recommend Renal (CCHO) diet. 2. Recommend Nepro BID.
--- NOTE | 2018-09-07 14:21 | NUR ---
PER COMMERCIAL LINES MANAGER KATHY, PT HAD [address] HALEY NOTIFIED.
--- NOTE | 2018-09-07 14:26 | NUR ---
DR PEDROZA NOTIFIED THAT PT HAD 4 BEATS OF V TACH.
--- NOTE | 2018-09-07 14:30 | NUR ---
DR PIKE NOTIFIED OF BP 187/49 AND ORDERED TO GIVE HYDRALAZINE PO NOW. PT RESTING IN BED, NO RESPIRATORY DISTRESS NOTED, DENIES CHEST PAIN, FAMILY AT BEDSIDE, CALL LIGHT WITHIN REACH.
--- NOTE | 2018-09-07 14:37 | NUR ---
SPOKE WITH DEWAYNE AND INFORMED HER OF HD ORDERS FOR TOMORROW 09/08/18. ALL QUESTIONS AND CONCERNS ADDRESSED. PRIMARY RN AWARE.
--- NOTE | 2018-09-07 14:43 | NUR ---
IV IN ROSAMARIA SWOLLEN, NO LONGER FLUSHING, IV REMOVED WITH CATHETER INTACT, GAUZE AND TAPE PLACED ON SITE, ROSAMARIA WRAPPED IN WARM BLANKET AND ELEVATED ON PILLOW. DAUGHTER REFUSED IV REINSERTION. AFTER I EDUCATED DAUGHTER ON NEED FOR IV, DAUGHTER AGREED BUT ONLY WANTS PT POKED ONE TIME FOR IV. RESOURCE NURSE AUBRIE TO ATTEMPT IV INSERTION.
--- NOTE | 2018-09-07 16:39 | NUR ---
NEW IV PLACED IN LFA BY AUBRIE CABRERA RN, FLUSHING WELL, BLOOD RETURN PRESENT. BP 166/45 IN [place], DR HALEY NOTIFIED. FAMILY STATES THEY WOULD LIKE US TO CONT TO USE THIGHS FOR BP READING BUT DR HALEY STATES LUE IS FINE TO USE FOR BP READING.
--- NOTE | 2018-09-07 18:37 | NUR ---
PT RESTING IN BED, NO RESPIRATORY DISTRESS NOTED, ALL LINENS AND GOWN CHANGED, PT DENIES PAIN, CALL LIGHT WITHIN REACH, FAMILY AT BEDSIDE.
--- NOTE | 2018-09-07 19:27 | NUR ---
ENDORSED CARE TO KAIA LOUIE.
--- NOTE | 2018-09-07 19:32 | NUR ---
PER DR YOUNG, PT BP TO BE CHECKED Q 4 HRS INSTEAD OF Q 2 HRS.
--- NOTE | 2018-09-07 19:35 | NUR ---
RECIEVED PT RESTING IN BED WITH NO ACUTE DISTRESS AT THIS TIME, GRANDSON AT BEDSIDE, PT DENIES RESPIRATORY DISTRESS OR CHEST PAIN, ASSESSMENT PERFORMED AT THIS TIME, PT A/OX2 TO PERSON PLACE AND TIME, FORGETFUL, SAFETY PRECAUTIONS IN PLACE, WILL CONTINUE TO MONITOR
--- NOTE | 2018-09-07 20:48 | NUR ---
PT BP WAS 158/52 AND HR WAS 74, WENT TO ADMINISTER 2100 BP MEDS PER ORDER, AND DAUGHTER OF THE PATIENT TOLD ME THAT HER BP WAS USUALLY BETWEEN 140 AND 165 SYSTOLIC AND DIDNT WANT ME TO GIVE HER THE MEDS BECAUSE THEY DIDNT WANT HER BLOOD PRESSURE TO GO TOO LOW, I EDUCATED THEM WHAT A NORMAL BP RANGE IS AND WHAT THE RISKS OF HAVING BLOOD PRESSURE GO HIGHER THAN THAT, BUT THEY STILL REFUSED, INFORMED CHARGE NURSE JEYSON.
--- NOTE | 2018-09-07 22:30 | NUR ---
PT SLEEPING IN BED WITH FAMILY MEMBER AT BEDSIDE, NO ACUTE DISTRESS NOTED AT THIS TIME, PT DENIES PAIN OR SOB, SAFETY PRECAUTIONS IN PLACE, WILL CONTINUE TO MONITOR
[2018-09-08] VITALS (11 sets, daily range): BP systolic 110–187; BP diastolic 40–96
--- NOTE | 2018-09-08 00:25 | NUR ---
BP 185/56, PAGED DR WONG
--- NOTE | 2018-09-08 00:43 | NUR ---
CONTACTED DR WONG ABOUT BP OF 185/56, SAID HE WOULD ORDER DOSE OF NIFEDIPINE
--- NOTE | 2018-09-08 02:35 | NUR ---
PT BLOOD PRESSURE 187/62, DR WONG AND DR YOUNG INFORMED SAID THEY WOULD ORDER HYDALAZINE IVP
--- NOTE | 2018-09-08 05:10 | NUR ---
PT HAD NO EPISODES OF ACUTE DISTRESS THROUGH NIGHT, HOWEVER PT BLOOD PRESSURE WAS UNCONTROLLED AND ADMINISTRATION OF HYDRALAZINE IV WAS USED TO DECREASE BLOOD PRESSURE BELOW 170 SYSTOLIC, PT DENIED PAIN OR SOB THROUGH OUT SHIFT, FAMILY REMAINED AT BEDSIDE THROUGH NIGHT, WILL CONTINUE TO MONITOR AND ENDORSE CARE TO ONCOMING SHIFT.
--- NOTE | 2018-09-08 06:32 | NUR ---
PT REPORTED SHORTNESS OF BREATH, INCREASED HER O2 UP TO 4L VIA NC AND O2 SAT AT 98%
[2018-09-08 07:36] LABS: PLATELET COUNT 137 x10^3mcL (130-400)
[2018-09-08 07:42] LABS: CALCIUM 9.5 mg/dL (8.5-10.1); CARBON DIOXIDE 25.3 mmol/L (21-32); CHLORIDE SERUM 102 mmol/L (98-107); CREATININE SERUM 3.6 mg/dL (0.6-1.0); GLUCOSE SERUM 113 mg/dL (74-106); MAGNESIUM 2.4 mg/dL (1.8-2.4); PHOSPHOROUS 2.6 mg/dL (2.5-4.9); POTASSIUM SERUM 4.5 mmol/L (3.5-5.1); SODIUM SERUM 141 mmol/L (136-145)
--- NOTE | 2018-09-08 07:45 | NUR ---
RECEIVED PATIENT RESTING IN BED COMFORTABLY A/O X2, REORIENTED TO TIME. PATIENT ABLE TO MAKE NEEDS KNOWN AND FOLLOW COMMANDS. DAUGHTER CHAPARRITA (FRANCES) AT BEDSIDE. TELE #[address], DENIES CHEST PAIN. BREATHING EVEN AND UNLABBORED ON O2 2 L/MIN VIA NC, DENIES SOB, HOB ELEVATED. PATIENT DENIES NAY PAIN. IV TO LFA H/L INTACT AND PATENT. PATIENT IS CALM WITH CARE. INSTRUCTED TO CALL FOR ASSISTANCE IF NEEDED. SAFETY PRECAUTIONS MAINTAINED. WILL MONITOR.
[2018-09-08 08:05] LABS: BASOPHIL % 0 % (0-2); RED CELL DISTRIBUTION WIDTH 18.4 % (11.5-14.5)
--- NOTE | 2018-09-08 08:50 | NUR ---
RADIOLOGY NURSE LEE ANN RN AND ATHLETIC EVENTS SCORER AT BEDSIDE TO PREP PATIENT FOR US GUIDED RIGHT THORACENTESIS, FAMILY AT BEDSIDE.
--- NOTE | 2018-09-08 09:10 | NUR ---
SPOKE WITH DR. WYNN (RAIL SWITCH OPERATOR)- PATIENT UPDATE GIVEN. DR. WYNN INFORMED OF SBP 191 AT THIS TIME PRIOR TO STARTING US GUIDED THORACENTESIS. PER DR. WYNN OKAY TO GIVE AM BP MEDICATION (SEE eMAR) AFTER THORACENTESIS IF BP REMAINS ELEVATED EVEN THOUGH PATIENT IS SCHEDULED HD TODAY. INFORMED DR. WYNN OF POSSIBILITY OF DAUGHTER REFUSING MORNING BLOOD PRESSURE MEDS (SEE eMAR) DUE TO PATIENT BEING SCHEDULED FOR HD TODAY, PER DR. WYNN IF BP REMAINS ELEVATED OKAY TO GIVE NIFEDIPINE PO (SEE eMAR) BEFORE DIALYSIS IF FAMILY AGREES. NO FURTHER ORDERS RECEIVED, WILL FOLLOW THROUGH. ALL QUESTIONS AND CONCERNS ADDRESSED.
--- NOTE | 2018-09-08 09:30 | NUR ---
DR. BARRY AT BEDSIDE FOR US GUIDED RIGHT THORACENTESIS, COMPLETE AT THIS TIME WITH 700 ML OUT. PATIENT TOLERATED WELL, DENIES ANY PAIN, FAMILY AT BEDSIDE. BP 162/96, HR 79, O2 SAT 95% ON O2 3 L/MIN VIA NC. PATIENT RESTING COMFORTABLY IN BED, ALL NEEDS ATTENDED TO. SAFETY PRECAUTIONS MAINTAINED. WILL MONITOR.
--- NOTE | 2018-09-08 11:30 | NUR ---
IV TO LFA BLEEDING AND LEAKING, REMOVED CATH INTACT. WILL ATTEMPT TO PLACE NEW IV IN 1 HOUR PER DAUGHTER ROSANNE REQUEST. PATIENT RESTING COMFORTABLY IN BED. SAFETY PRECAUTIONS MAINTAINED. WILL MONITOR.
--- NOTE | 2018-09-08 11:50 | NUR ---
SPOKE WITH DR. HALEY AND GAVE PATIENT UPDATE: PATIENT HAD US GUIDED THORACENTESIS DONE THIS MORNING WITH 700 ML OUT WITH BP 162/46 S/P THORACENTESIS AND MOST RECENT BP OF 172/49 AND BP MEDS NOT GIVEN THIS AM DUE TO DAUGHTER REFUSING. PER DR. HALEY BP IS OKAY PATIENT IS GOING TO HAVE HD TODAY AND IF SBP IS GREATER THEN 190 GIVE BP MEDICATION AND TO CONTINUE MONITORING BP. NO FURTHER ORDERS GIVEN. WILL MONITOR.
--- NOTE | 2018-09-08 12:37 | NUR ---
PATIENT RESTING IN BED COMFORTABLY, FAMILY AT BEDSIDE. PATIENT REPOSITIONED AND MADE COMFORTABLE, DUE MEDICATION GIVEN. ALL NEEDS ATTENDED TO, SAFETY PRECAUTIONS MAINTAINED. WILL MONITOR.
--- NOTE | 2018-09-08 14:38 | NUR ---
HEMODIALYSIS NURSE AT BEDSIDE PREPPING PATIENT FOR HEMODIALYSIS, FAMILY AT BEDSIDE. PATIENT RESTING COMFORTABLY IN BED, NO DISTRESS NOTED. WILL MONITOR.
--- NOTE | 2018-09-08 15:09 | NUR ---
PATIENT RESTING IN BED COMFORTABLY, NO DISTRESS NOTED, FAMILY AT BEDSIDE. HD IN PROGRESS, VSS. ALL NEEDS ATTENDED TO, SAFETY PRECAUTIONS MAINTAINED. WILL MONITOR.
--- NOTE | 2018-09-08 17:10 | NUR ---
PATIENT SITTING UP IN BED RESTING COMFORTABLY NO DISTRESS NOTED, HD STILL IN PROGRESS, VSS. DAUGHTER ROSANNE AT BEDSIDE. ALL NEEDS ATTENDED TO, SAFETY PRECAUTIONS MAINTAINED. WILL MONITOR.
--- NOTE | 2018-09-08 18:15 | NUR ---
PATIENT SITTING UP IN BED RESTING COMFORTABLY, NO DISTRESS NOTED. HEMODIALYSIS COMPLETE AT THIS TIME WITH 1.5 L OUT, VSS, BP 133/40, HR 72. NO ACTIVE BLEEDING NOTED TO RUA. CHILO BAER AT BEDSIDE, ALL NEEDS ATTENDED TO, SAFETY PRECAUTIONS MAINTAINED. WILL MONITOR.
--- NOTE | 2018-09-08 19:00 | NUR ---
RECEIVED PT FROM DAY SHIFT RN. PT IS ALERT AND ORIENTED AND DANISH SPEAKING. FAMILY IS AT THE BEDSIDE. PT IS CURRENTLY RESTING IN BED AND DENIES ANY CHEST PAIN OR SHORTNESS OF BREATH ON 2L NASAL CANULA. THERE ARE NO USE OF ACCESSORY MUSCLES OR LABORED BREATHING ON ASSESSMENT. RIGHT AV SHUNT NOTED WITH DRESSING CLEAN DRY AND INTACT AT THIS TIME. PT HAS NO IV ACCESS AT THIS TIME. ENDORSED TO ME BY DAY NURSE. WILL ATTEMPT TO PLACE IV ACCESS DURING SHIFT. PT HAS LEFT SIDED WEAKNESS NOTED. OFF PRESSURE LOADS AT THIS TIME. INSTRUCTED PT AND FAMILY TO CALL IF EXPERIENCING SOB OR CHEST PAIN. TELE MONITOR IN PLACE #23. SAFETY MEASURES ARE IN PLACE. BED IN THE LOWEST POSITION. CALL LIGHT IS WITHIN REACH. WILL CONTINUE TO MONITOR.
--- NOTE | 2018-09-08 19:10 | NUR ---
REPORT GIVEN TO HAILEE LOUIE, ALL QUESTIONS AND CONCERNS ADDRESSED, ALL CARES ENDORSED.
--- NOTE | 2018-09-08 21:39 | NUR ---
PT AND FAMILY (DAUGHTER) REFUSING BP MEDICATIONS. ALSO REFUSING ZOSYN UNTIL SPOKEN TO BY DOCTOR. DR WONG AWARE. NO FURTHER INSTRUCTIONS/ORDERS AT THIS TIME.
--- NOTE | 2018-09-08 22:53 | NUR ---
ATTEMPTED IV START 3X UNSUCCESSFULLY. DAUGHTER REFUSES ANYMORE ATTEMPTS TO PLACE IV. PAGED DR WONG AWAITING A RETURN CALL. CANNOT ADMINISTER ZOSYN PER ORDER AT THIS TIME.
--- NOTE | 2018-09-08 22:54 | NUR ---
PT REPOSITIONED IN BED. OFF PRESSURE LOADS. DONE WITH ASSISTANCE FROM DAUGHTER.
--- NOTE | 2018-09-08 22:58 | NUR ---
DR WONG MADE AWARE OF IV SITUATION. STATED HE WILL CALL ME BACK. NO NEW ORDERS AT THIS TIME.
[2018-09-09] VITALS (7 sets, daily range): BP systolic 135–176; BP diastolic 31–69
--- NOTE | 2018-09-09 02:05 | NUR ---
PT ASLEEP IN BED. NO SIGNS OR SYMPTOMS OF DISTRESS. PT TOLERATING 2L NASAL CANULA. BREATHING SYMMETRIC WITH NO ACUTE RESPIRATORY DISTRESS NOTED. DAUGHTER AT THE BEDSIDE. WILL CONTINUE TO MONITOR.
--- NOTE | 2018-09-09 05:13 | NUR ---
PT SLEPT THROUGHOUT THE SHIFT WITH DAUGHTER AT THE BEDSIDE. PT CURRENTLY RESTING IN BED WITH EYES CLOSED. NO DISTRESS NOTED. NO FACIAL GRIMMACING NOTED. ATTEMPTED 4X IV INSERTION UNSUCCESSFULLY THROUGHOUT THE SHIFT. DOCTOR AWARE. NO NEW ORDERS OF NOW. HOLDING 6AM ZOSYN NO IV ACCESS. NO SIGNIFICANT CHANGES NOTED THROUGOHOUT THE SHIFT. SAFETY MEASURES ARE IN PLACE. CALL LIGHT IS WITHIN REACH. WILL ENDORSE CONTINUITY OF CARE TO DAY SHIFT RN.
--- NOTE | 2018-09-09 05:24 | NUR ---
PT/DAUGHTER REFUSING LAB BLOOD DRAW. DOCTOR JUDITH MADE AWARE. HE WILL SPEAK TO PT/DAUGHTER.
--- NOTE | 2018-09-09 05:29 | NUR ---
PT SLEPT FOR REMAINDER OF THE SHIFT. HOB ELEVATED AT THIS TIME PT TOLERATING ON 2L NASAL CANULA. NO DISTRESS NOTED. NO SIGNIFICANT CHANGES NOTED THROUGHOUT THE SHIFT. SAFETY MEASURES IN PLACE. BED IN LOWEST POSITION. CALL LIGHT WITHIN REACH. WILL CONTINUE TO MONITOR.
--- NOTE | 2018-09-09 07:10 | NUR ---
RECEIVED PT FROM NIGHT NURSE. PT IS LAYING DOWN IN BED WITH HOB UP RESTING. FAMILY MEMBER AT BEDSIDE. FAMILY REQUESTING TO CHECK PT TO ENSURE HAS NOT HAD A BOWEL MOVEMENT. PT SKIN IS CDI, REPOSITIONED PT. NO IV SITE, PT AND FAMILY REFUSING IV ACCESS, DR. ROMERO. TELE MONITOR PRESENT. BED IN LOWEST POSITION, CALL LIGHT WITHIN REACH. WILL CONTINUE TO MONITOR.
--- NOTE | 2018-09-09 14:45 | NUR ---
SCD APPLIED. PT AND FAMILY MEMBER EDCUATED ON SCD, FAMILY MEMBER VERBALIZED UNDERSTANDING.
[2018-09-09 17:52] LABS: SOURCE FLUID PLEURAL
[2018-09-09 17:53] LABS: APPEARANCE FLUID BLOODY; COLOR FLUID RED; LYMPHOCYTE FLUID 19 %; MONOCYTE FLUID 11 %; RBC FLUID 323500 /cumm; WBC FLUID 6200 /cumm
--- NOTE | 2018-09-09 18:43 | NUR ---
PT IS LAYING DOWN IN BED WITH HOB UP RESTING WITH EYES CLOSED. PT EASILY AROUSABLE. PT LOOKS TO BE IN NO ACUTE DISTRESS AT THIS TIME AND DENIES ANY PAIN. RESPIRATIONS EVEN AND UNLABORED ON 2L NC. NO IV SITE, DR. ROMERO. FAMILY MEMBER AT BEDSIDE. ROSAMARIA SHUNT WITH DRESSING APPLIED, BRUIT AND THRILL PRESENT. BED IN LOWEST POSITION, CALL LIGHT WITHIN REACH. WILL ENDORSE TO ONCOMING SHIFT.
--- NOTE | 2018-09-09 20:00 | NUR ---
RECIEVED PT FROM LIBAN JOHNSON. PT IS A/OX 3. PT IS ON TELE #23 SR WITH FIRST DEGREE AVB. HR 62. PT DENIES ANY CHEST PAIN OR SOB AT THIS TIME. PT LUNG SOUNDS ARE DIMISHED BILATERALLY. PT BREATHE SOUNDS ARE EVEN WITH MILD LABOR BREATHING ON EXERTION. PT IS ON 2L O2 NC. NO RESP DISTRESS NOTED. PT HAS HD T/TH/S. LAST HD 09/08 1.2 L OUT. NEXT HD IS 09/10. PT IS ON STRICT I&O 1.2 L/DAY. PT HAS ROSAMARIA AV SHUNT, THRILL AND BRUIT PRESENT. PT HAS LEFT SIDED PARALYSIS, WHEELCHAIR BOUND. PT SKIN IS INTACT, DENIES ANY PAIN AT THIS TIME. PT HAS NO IV ACCESS AT THIS TIME, DR KUNZ AWARE. WILL CONT TO MONITOR, CALL LIGHT WITHIN REACH.
--- NOTE | 2018-09-10 00:20 | NUR ---
PT ASLEEP IN BED. DAUGHTER AT BEDSIDE. PT BREATHING IS EVEN AND UNLABORED. NO RESP DISTRESS NOTED. CALL LIGHT WITHIN REACH. BED IN LOWEST POSITION. WILL CONT TO MONITOR.
[2018-09-10 05:23] VITALS: BP 155/49
--- NOTE | 2018-09-10 05:25 | NUR ---
PT WAS TAKEN DOWN FOR CT SCAN VIA BED.
--- NOTE | 2018-09-10 06:06 | NUR ---
PT SLEPT THROUGH THE NIGHT. DAUGHTER REMAINS AT BEDSIDE. PT BREATHING EVEN AND UNLABORED, ON O2 2L NC. NO RESP DISTRESS NOTED. PT IS ON TELE # [id number] WITH FIRST DEGREE AV BLOCK. PT ROSAMARIA AV SHUNT CDI. NO IV ACCESS PRESENT. PT DENIES ANY PAIN AT THIS TIME. WILL CONT TO MONITOR. NO ACUTE CHNAGES DURING THE NIGHT. WILL CONT TO MONITOR AND ENDORSE CARE TO DAY SHIFT NURSE.
--- NOTE | 2018-09-10 06:27 | NUR ---
PT IS BACK ON THE FLOOR FROM CT SCAN ASLEEP IN BED. NO RESP DISTRESS NOTED. WILL CONT TO MONITOR.
[2018-09-10 06:36] LABS: CALCIUM 8.9 mg/dL (8.5-10.1); CARBON DIOXIDE 24.3 mmol/L (21-32); CHLORIDE SERUM 106 mmol/L (98-107); CREATININE SERUM 2.9 mg/dL (0.6-1.0); GLUCOSE SERUM 111 mg/dL (74-106); PHOSPHOROUS 1.8 mg/dL (2.5-4.9); POTASSIUM SERUM 4.3 mmol/L (3.5-5.1); SODIUM SERUM 141 mmol/L (136-145)
[2018-09-10 07:40] LABS: BASOPHIL % 0.1 % (0-2)
--- NOTE | 2018-09-10 07:50 | NUR ---
REPORT TAKEN FROM SOCIAL ECONOMIST NURSE AT THE BEDSIDE, PT AWAKE, AND ALERT, IN NAD. FAMILY AT THE BEDSIDE, WILL CONTINUE TO MONITOR.
[2018-09-10 07:56] LABS: PLATELET COUNT 107 x10^3mcL (130-400); RED CELL DISTRIBUTION WIDTH 18.4 % (11.5-14.5)
[2018-09-10 08:30] VITALS: BP 137/30
--- NOTE | 2018-09-10 10:59 | NUR ---
PT WAS SEEN FOR DYSPHAGIA. PT WAS ABLE TO SAFELY SWALLOW MS DIET WITH THIN LIQUID. PT HAD MILD DIFFICULTY WITH MASTICATION SKILLS FOR REGULAR DIET. PILLS SHOULD BE CRUSHED. RECOMMENDATION MS DIET WITH CHOPPED MEAT AND VEG WITH THIN LIQUID. SMALL BITES AND SIPS ONLY. 1:1 SUPERVISION.
[2018-09-10 13:03] VITALS: BP 156/40
--- NOTE | 2018-09-10 13:13 | NUR ---
Intervention: 1. Recommend liberalizing CCHO diet and discontinue Renal due to low Phosphorus levels and normal Potassium and pt not eating well. 2. Recommend Nepro TID
--- NOTE | 2018-09-10 13:13 | NUR ---
Follow-up Nutrition Assessment: Brittany Villagomez F/U Rm [id number] Dx: Acute Coronary Syndrome, Left Pleural Effusion PMHx:GERD, ESRD with HD, ACSDHF, HTN, DM, CVA, Dialysis, Shunt R Upper arm (left), Sided paralysis (CVA), wheelchair bound 2005 Labs: (09/10) Glucos. 111H, BUN 23.0H, Creat. 2.9H, Phos. 1.8L, WBC 3.9L, Hgb. 9.7L, Hct. 29L Meds: Adalat, Humulin, Levaquin, Lipitor, Renagel, Synthroid, Zofran Diet: CCHO PO Intake: (09/05) Renal -10-40%, (09/06) Renal 25-30%, (09/07) Renal 20-40%, (09/08) Renal 20-80% Weights: (09/07) 45.8kg, (09/06) 44.7kg, (09/05) 49.0kg Bedscale: (09/10) 105.6#, 48kg I/Os: (09/10) Total intake: 700, Total Output: 1300, Fluid Balance: -600 Skin: Intact Shai: 16 Edema: BLE GI: Bowel sounds active x4 quadrants (09/09) Last BM: 09/09/18 RD Note (09/10/18): Spoke with pt's daughter Jeanne and she states that the pt has no appetite. She said she only takes taking some of the Nepro and oatmeal for breakfast. Per LIBAN Polanco pt is on fluid restriction of 1200mg/day. Jeanne also stated that pt used to like eggs, but will no longer eat them and does not like meats. She said she has been having trouble with textures. Jeanne stated she did not need any nutrition education today because she gets a lot of information from her mother's dialysis center. Estimated Nutritional Needs Based on actual body weight 46kg Energy: 1380-1600kcal/day (30-35kcal/kg for maintenance) Protein: 55g-69/day (1.2-1.5g/kg for HD) Fluid: per Nutrition Diagnosis: . 1. Malnutrition r/t ESRD/dialysis aeb muscle wasting and BMI 21.9kg/m2 (considered underweight for geriatric age). (Ongoing) Intervention: 1. Recommend liberalizing CCHO diet and discontinue Renal due to low Phosphorus levels and normal Potassium and pt not eating well. 2. Recommend Nepro TID Monitor/Evaluate: Goal: Have pt meet at least 75% of estimated needs Monitor: PO intake, Labs, GI function HR F/U 09/12-09/13
--- NOTE | 2018-09-10 14:05 | NUR ---
CALL PICC RN SPOKE TO ROSY LORA WILL BE CALLED.
[2018-09-10 16:54] VITALS: BP 175/42
--- NOTE | 2018-09-10 18:49 | NUR ---
PT TOLERATED TREATMENT WELL DURING SHIFT, WILL REPORT TO CORE MAKER NURSE AND ENDORSE CARE.
--- NOTE | 2018-09-10 19:40 | NUR ---
RECIEVED PT FROM LIBAN CHOWDHURY. PT IS A/OX 3. PT IS MED SURG, PT DENIES ANY CHEST PAIN OR SOB AT THIS TIME. PT LUNG SOUNDS ARE DIMINISHED BILATERALLY. PT BREATHE SOUNDS ARE EVEN AND UNLABORED. PT IS ON 2L O2 NC. NO RESP DISTRESS NOTED. PT HAS HD T//S. LAST HD 09/08 1.2 L OUT. PT IS CURRENTLY RECEIVING DIAYLASIS AT THIS TIME, DIAYALASIS NURSE AT BEDSIDE. PT IS ON STRICT I&O 1.2 L/DAY. PT HAS ROSAMARIA AV SHUNT, THRILL AND BRUIT PRESENT. PT HAS LEFT SIDED PARALYSIS, WHEELCHAIR BOUND. PT SKIN IS INTACT, DENIES ANY PAIN AT THIS TIME. PT HAS NO IV ACCESS AT THIS TIME, MADE AWARE. WILL CONT TO MONITOR, CALL LIGHT WITHIN REACH. DAUGHTER AT BEDSIDE.
--- NOTE | 2018-09-10 21:25 | NUR ---
CONTACTED DR. WONG IN REGARDS TO PT PICC LINE, DR KAUR CONTACTED CALCULUS PROFESSOR AND IS AWAITING A FOLLOW UP. WILL FOLLOW UP IN THE MORNING.
--- NOTE | 2018-09-10 22:05 | NUR ---
PT COMPLETED HD. DIAYALSIS NURSE REPORTED 2L OUT. PT VS WERE 105/47 HR 62 TEMP 98.6. PT IN BED, DAUGHTER AT BEDSIDE. NO RESP DISTRESS NOTED AT THIS TIME. WILL CONT TO MONITOR. CALL LIGHT WITHIN REACH.
--- NOTE | 2018-09-10 22:19 | NUR ---
TALKED TO DR WONG ON PICC LINE FOLLOW UP. PER DR WYNN "NO PICC LINE FOR THIS PT, PERFERABLY A MID LINE". PER DR WONG "WILL ENDORSE TO DAY TEAM AND FOLLOW UP". WILL CONT TO MONITOR.
--- NOTE | 2018-09-11 00:05 | NUR ---
PT IS ASLEEP IN BED. DAUGHTER AT BEDSIDE. PT BED AT LOWEST POSITION, FALL PERCAUTIONS IN PLACE. PT IS ON 2L NC, BREATHES ARE EVEN AND UNLABORED. NO RESP DISTRESS NOTED. NO SIGNS OF PAIN OBSERVED. CALL LIGHT WITHIN REACH, WILL CONT TO MONITOR.
--- NOTE | 2018-09-11 05:06 | NUR ---
PT SLEPT THROUGH THE NIGHT. DAUGHTER REMAINS AT BEDSIDE. PT BREATHING EVEN AND UNLABORED, ON O2 2L NC. NO RESP DISTRESS NOTED. PT IS MED SURG, DENIES ANY CHEST PAIN OR SOB AT THIS TIME. PT LAST HD WAS 09/10/18, 2L OUTPUT. ROSAMARIA AV SHUNT THRILL AND BRUIT PRESENT, CDI. PT HAS NO IV ACCESS PRESENT, MD AWARE. PT DENIES ANY PAIN AT THIS TIME. WILL CONT TO MONITOR. NO ACUTE CHANGES DURING THE NIGHT. WILL CONT TO MONITOR AND ENDORSE CARE TO DAY SHIFT NURSE.
[2018-09-11 05:31] VITALS: BP 154/40
[2018-09-11 06:54] LABS: CALCIUM 8.3 mg/dL (8.5-10.1); CARBON DIOXIDE 27.4 mmol/L (21-32); CHLORIDE SERUM 106 mmol/L (98-107); GLUCOSE SERUM 130 mg/dL (74-106); MAGNESIUM 1.8 mg/dL (1.8-2.4); PHOSPHOROUS 1.4 mg/dL (2.5-4.9); POTASSIUM SERUM 3.4 mmol/L (3.5-5.1); SODIUM SERUM 141 mmol/L (136-145)
[2018-09-11 07:00] LABS: PLATELET COUNT 105 x10^3mcL (130-400); RED CELL DISTRIBUTION WIDTH 17.5 % (11.5-14.5)
--- NOTE | 2018-09-11 07:10 | NUR ---
PT RECIEVED IN BED RESTING WITH FAMILY AT BEDSIDE. A/O X3, NO MELO OR DIZZINESS. LUNGS DIMINISHED BILAT. NO SOB NOTED. PT ON 2 LPM O2 NC. VS WNL. NO IV ACCESS, PT TO GET MIDLINE PROCEDURE DONE TODAY. SAFETY PRECATIONS IN PLACE, CALL LIGHT WITHIN REACH, WILL MONITOR.
--- NOTE | 2018-09-11 08:15 | NUR ---
PICC LINE NURSE AT BEDSIDE TO DO MIDLINE PROCEDURE, ULTRASOUND TO FOLOOW TO CONFIRM PLACEMENT. ALL CONCENTS SIGNED. DAUGHTER AT BEDSIDE.
--- NOTE | 2018-09-11 09:01 | NUR ---
LIBAN HARRELL DONE WITH MIDLINE ACCESS. X-RAY PENDING FPR PACEMENT VERIFICATION. WILL F/U. PT TOLERATED PREOCEDURE WELL.
--- NOTE | 2018-09-11 09:30 | NUR ---
ULTRASOUND CONFIRMED CORRECT PLACEMENT OF MIDLINE.
[2018-09-11 09:37] VITALS: BP 147/34
[2018-09-11 11:23] LABS: BAND NEUTROPHIL 0 % (0-10); BASOPHIL 0 % (0-2); MONOCYTE 3 % (0-7); PLATELET MORPHOLOGY PLATELETS DECREASED; SEGMENTED NEUTROPHILS 93 % (37-75)
[2018-09-11 11:24] LABS: rbc morphology (normal/abnorm) ABNORMAL (NORMAL)
--- NOTE | 2018-09-11 13:00 | NUR ---
FAMILY AT BEDSIDE, NO CHANGES IN PT CONDITION. PT STABLE. CALL LIGHT WITHIN REACH, SAFETY PRECAUTIONS IN PLACE.
--- NOTE | 2018-09-11 16:00 | NUR ---
PT STABLE WITH FAMILY AT BEDSIDE. WILL MONITOR
[2018-09-11 17:47] VITALS: BP 168/59
--- NOTE | 2018-09-11 19:30 | NUR ---
RECEIVED PT RESTING IN BED, NO ACUTE DISTRESS NOTED. MANY FAMILY MEMBERS AT BEDSIDE. PT AOX3, DENIES MELO/DIZZINESS. MEDSURG PT, DENIES CP. PULSES PALPABLE BILAT, DENIES NUMBNESS/TINGLING IN FEET. RESP EVEN AND UNLABORED ON 2LNC. DENIES SOB. PT WITH FINE CRACKLES LEFT UPPER LOBE, DIM BILAT BASES. PT REPORTS USING O2 AT HOME. TOLERATING BREATHING TX WELL. ABD SOFT, ROUND, PER DAUGHTER, PT HAS A HARD SMALL STOOL SHE CANNOT PUSH OUT. WILL PAGE FOR 2ND DOSE OF LACTULOSE (PT FAMILY STS SHE WILL NOT TAKE A SUPPOSITORY). PT HD (T, TH, SAT). PT SCHEDULED TO HAVE HD SAT 09/12. PT WITH NEW MIDLINE TO SALINA, FLUSHING WELL. PT SALINE LOCKED AT THIS TIME. NO REDNESS, SWELLING OR PAIN NOTED. PT ON ANTIBIOTICS. ALL COMFORT AND SAFETY MEASURES PROVIDED FOR, CALL LIGHT WITHIN REACH, BED IN LOWEST POSITION, SHYANN CONTINUE TO MONITOR.
--- NOTE | 2018-09-11 19:56 | NUR ---
PAGED RESIDENT DR. WONG IN REGARDS TO PT REQUESTING ANOTHER DOSE OF LACTULOSE. WHEN ASKED IF PT WOULD LIKE TO TRY A SUPPOSITORY SINCE PT FAMILY STS SHE FEELS A SMALL HARD STOOL STUCK IN RECTUM. PT FAMILY MEMBER INSIST PT WILL NOT TAKE A SUPPOSITORY. REQUESTING LACTULOSE SINCE PT HAS SMALL BM EARLIER AFTER THE 1ST DOSE. WILL WAIT FOR NEW ORDERS.
--- NOTE | 2018-09-11 20:28 | NUR ---
PT STABLE WITH NO S/S OF DISTRESS. ALL CARES TOLERATED WELL. VS WNL. MIDLINE INTACT AND PATENT WITH NO REDNESS OR INFLAMMATION. ALL PORTS COVERED WITH BLUE CAPS. SAFETY PREC IN PLACE, CALL LIGHT WITHIN REACH, ENDORSED CARE TO NIGHT NURSE. FAMILY AT BEDSIDE ALL SHIFT.
[2018-09-11 20:29] VITALS: BP 152/45
--- NOTE | 2018-09-11 21:15 | NUR ---
ATTEMPTED TO PROVIDE PT WITH BP MEDICATION FOR BP= 152/45, HR 62. EXPAINED TO DAUGHTER AT BEDSIDE THAT PER PARAMETERS, WILL HOLD COREG D/T HR 62, YET WILL ADMIN NIFEDIPINE PO. PER DAUGHTER, PT BP USUALLY MUCH HIGHER AND THIS SBP 150'S IS WNL FOR HER. PROVIDED EDUCATION TO PT AND HER DAUGHTER THE RISK/BENEFITS OF BP MEDICATIONS WELL THE RISK OF STROKE WITH PERSISTENTLY ELEVATED BP. PER DAUGHTER, SHE IS AWARE AND IS STILL REQUESTING TO HOLD BP MEDICATIONS AT THIS TIME D/T PT IS "NORMALLY HIGHER AND THIS IS A GOOD BP FOR HER". WILL COLLABORATE WITH SENIOR ENGINEERING ASSOCIATE AND DAYSHIFT NURSE TO INSTATE PARAMETERS FOR WHEN PT BP MUST BE TREATED. PER DR. PEDROZA NOTED, PT NEEDS TO HAVE COREG 12.5 AND NIFEDIPINE 30MG BID AND WILL ADJUST DOSE NEEDED. WILL FOLLOW UP IN AM.
--- NOTE | 2018-09-12 05:05 | NUR ---
PT RESTED IN INTERVALS DURING SHIFT, NO ACUTE CHANGES OCCURRING OVERNIGHT. PT MIDLINE REMAINS PATENT, NO REDNESS, SWELLING OR PAIN NOTED. PT TOLERATING ANTIBIOTIC WELL, DENIES N/V/D. PT PROVIDED LACTULOSE DURING EVENING, PER DAUGHTER PT HAS LARGE BM. PT RESTED WELL AFTER PASSING STOOL. PT RECEIVED BREATHING TX LAST NIGHT WITH GOOD RELIEF. PT HAS EPISODES OF CRYING OUT FOR HER , DAUGHTER REMAINING AT BEDSIDE THROUGHOUT NIGHT TO PROVIDE COMFORT. OF NOTE, DAUGHTER REQUESTING TO HOLD BP MEDS LAST NIGHT, WILL MONITOR BP THIS AM AND ASSESS THE NEED. ALL COMFORT AND SAFETY MEASURES PROVIDED FOR, CALL LIGHT WITHIN REACH, BED IN LOWEST POSITION, WILL CONTINUE TO MONITOR.
[2018-09-12 05:24] VITALS: BP 131/62
[2018-09-12 06:25] LABS: BASOPHIL % 0.7 % (0-2)
[2018-09-12 06:57] VITALS: BP 131/62
[2018-09-12 07:00] LABS: CALCIUM 8.1 mg/dL (8.5-10.1); CARBON DIOXIDE 29.2 mmol/L (21-32); CHLORIDE SERUM 107 mmol/L (98-107); CREATININE SERUM 2.8 mg/dL (0.6-1.0); GLUCOSE SERUM 109 mg/dL (74-106); MAGNESIUM 1.8 mg/dL (1.8-2.4); PHOSPHOROUS 2.2 mg/dL (2.5-4.9); SODIUM SERUM 143 mmol/L (136-145)
[2018-09-12 07:19] LABS: PLATELET COUNT 118 x10^3mcL (130-400); RED CELL DISTRIBUTION WIDTH 17.5 % (11.5-14.5)
--- NOTE | 2018-09-12 07:20 | NUR ---
RECIEVED PT ASLEEP IN BED WITH NO S/S OF DISTRESS. DAUGHTER AT BEDSIDE. LUNGS CTA, NO SOB NOTED. PT ON 2 LPM O2 VIA NC. MIDLINE LEFT UPPER ARM INTACT AND PATENT WITH NO REDNESS OR INFLAMMATION NOTED. SAFETY PRECAUTIONS IN PLACE, CALL LIGHT WITHIN REACH, WILL MONITOR.
--- NOTE | 2018-09-12 07:35 | NUR ---
ENDORSED ALL CARE TO DAYSHIFT NURSE, ALL QUESTIONS AND CONCERNS ADDRESSED. ALL COMFORT AND SAFETY MEASURES PROVIDED FOR, CALL LIGHT WITHIN REACH, BED IN LOWEST POSITION.
[2018-09-12 09:35] VITALS: BP 145/94; BP 180/52
--- NOTE | 2018-09-12 09:40 | NUR ---
PT STARTED ON HD AT THIS TIME. GAVE HD NURSE ALL LAB RESULTS, ORDERS AND NS NEEDED FOR PROCEDURE. WILL MONITOR.
--- NOTE | 2018-09-12 10:48 | NUR ---
SPOKE WITH CHINTAN FROM [facility], HE STATED THAT HE IS WAITING ON THE FAMILY TO MAKE A DECISON ON WHEATHER OR NOT THEY WANT HER TO GO TO [facility] OR A FACILITY IN [place]. NO OTHER INFORMATION GIVEN BY HIM.
--- NOTE | 2018-09-12 13:24 | NUR ---
PT IS NOW DONE WITH HD. 2 LITERS WAS REMOVED DURING PROCEDURE. PT STABLE AT THIS TIME, WILL MONITOR.
--- NOTE | 2018-09-12 14:29 | NUR ---
CHINTAN FROM [facility] CAME IN TO SPEAK WITH FAMILY AND MYSELF. HE STATED THAT THE FAMILY DECIDED ON [facility] PL[facility]EMENT AND FOR US TO CALL HIM WHEN WE HAVE DISCHARGE ORDERS. FAMILY IS REQUESTING FOR PT TO BE DISCHARGED ON 09/13/18 INSTEAD OF TODAY D/T PT BEING TIRED AFTER HD. NEELIMA MONTEIRO RN NOTIFIED.
--- NOTE | 2018-09-12 15:12 | NUR ---
LEFT A VOICEMAIL FOR CHINTAN AT [facility] [phone], NOTIFIED HIM OF PT DISCHARGE ORDER FOR 09/13/18 AT 0800.
--- NOTE | 2018-09-12 16:23 | NUR ---
RECIEVED CALL FROM CHINTAN AT [facility], HE REPORTED THAT THE PATIENT WAS ACCEPTED BY [facility] [phone]. ACCEPTING DOCTORS ARE DR MARTINEZ AND DR BOYD. PT WILL BE ACCEPTED AFTER 10AM AND HER ROOM NUMBER WILL BE [id number]. CHARGE NOTIFIED AND WILL ENDORSE TO NEXT SHIFT.
--- NOTE | 2018-09-12 18:37 | NUR ---
PT STABLE AT THIS TIME. NO DISTRESS, PAIN, OR SOB NOTED. FAMILY AT BEDSIDE. MIDLINE INTACT AND PATENT WITH NO REDNESS OR INFLAMMATION, ALL PORTS COVERED WITH BLUE COVERS. LUNGS CTA. TOLERATED ALL CARES WELL. SAFETY PRECAUTIONS IN PLACE, CALL LIGHT WITHIN REACH, WILL ENDORSE TO NIGHT NURSE.
[2018-09-12 19:00] VITALS: BP 178/47
--- NOTE | 2018-09-12 19:04 | NUR ---
DR PIKE AWARE OF PT INTERMITTENT HIGH SBP, NO MELO, DIZZINESS, N/V, OR CP REPORTED. PT REPOSITIONED AND GIVEN COMFORT MEASURES. DBP TOO LOW FOR PRN, CARE ENDORSED TO NIGHT NURSE.
--- NOTE | 2018-09-12 19:15 | NUR ---
PT FAMILY INSISTS ON DOING PT LENNY CARE AND REPOSITIONING THEMSELVES WITHOUT THE HELPOF NURSING STAFF. EDUCATED FAMILY MEMBERS ON IMPORTANCE OF KEEPING LENNY AND ALL SKIN AREA CLEAN AND DRY. ALSO EDUCATED ON REPOSITIONING EVERY 2 HOURS AND PRN TO AVOID ANY SKIN BREAKDOWN. IT WAS NOTICED THAT EVERY TIME I CHECK ON PT, SHE IS LAYING IN SAME POSITION. EDUCATION REINFORCED EVERYTIME.
--- NOTE | 2018-09-12 19:35 | NUR ---
RECEIVED PT RESTING IN BED, NO ACUTE DISTRESS NOTED. FAMILY MEMBER AT BEDSIDE. PT AOX3, DENIES MELO/DIZZINESS. MEDSURG PT, DENIES CP. RECEIVED PT WITH VERY HIGH BP, WILL REASSESS AND ENSURE PT IS MEDICATED PROMPTLY; PT DENIES MELO/DIZIZNESS. PULSES PALPABLE BILAT, DENIES NUMBNESS/TINGLING IN FEET. RESP EVEN AND UNLABORED ON 2LNC. DENIES SOB. PT WITH FINE CRACKLES RT LOWER LOBE, DIM LEFT LOWER AND CTA UPPER LOBES. PT REPORTS USING O2 AT HOME. TOLERATING BREATHING TX WELL. PT HAD SMALL BM DURING DAYSHIFT, CLEANED UP BY FAMILY. PT HAD HD TODAY W/ 2L OUT. PT REPORTS FEELING BETTER AFTER HD. PT WITH MIDLINE TO SALINA, PATENT, FLUSHING WELL. ALL PORTS CAPPED WITH BLUE CAPS. SALINE LOCKED AT THIS TIME. NO REDNESS, SWELLING OR PAIN NOTED. PT ON ANTIBIOTICS. ALL COMFORT AND SAFETY MEASURES PROVIDED FOR, CALL LIGHT WITHIN REACH, BED IN LOWEST POSITION, WILL CONTINUE TO MONITOR.
[2018-09-12 22:00] VITALS: BP 188/41
--- NOTE | 2018-09-12 22:00 | NUR ---
RECHECKED PT BP= 188/41 (90), HR 64. PT DENIES MELO/DIZZINESS. PER DAUGHTER, WILL RECHECK IN 1 HOUR TO ASSESS THE NEED FOR MORE MEDICATION. DR. WONG MADE AWARE. CALL LIGHT WITHIN REACH, BED IN LOWEST POSITION, DAUGHTER AT BEDSIDE.
[2018-09-12 23:00] VITALS: BP 165/41
--- NOTE | 2018-09-13 05:00 | NUR ---
PT RESTED IN INTERVALS DURING SHIFT, NO ACUTE DISTRESS NOTED. PT REMAINS ON 2LNC, DENIES SOB. PT REMAINS SALINE LOCKED, TOLERATING ANTIBIOCTICS WELL. PT DID NOT HAVE A BM THIS SHIFT, OPTIFORM IN PLACE TO COCCYX TO PROTECT CASSI PROMINENCES. DAUGHTER REMAINED AT BEDSIDE DURING SHIFT, ALL COMFORT AND SAFETY MEASURES PROVIDED FOR, CALL LIGHT WITHIN REACH, BED IN LOWEST POSITION, WILL CONTINUE TO MONITOR.
[2018-09-13 06:15] VITALS: BP 150/40
[2018-09-13] MEDS ORDERED: IPRATROPIUM BROM3 M2 HHN ×2 (07:04→07:05)
--- NOTE | 2018-09-13 07:04 | NUR ---
RECEIVED REPORT FROM ANNETTE LOUIE. PATIENT RESTING COMFORTABLY IN BED WITH DAUGHTER AT BEDSIDE. MIDLINE TO SALINA IA PATENT AND INTACT. NO REDNESS OR PAIN. PT ON O2 2L NC. NO DISTRESS NOTED. AV SHUNT TO ROSAMARIA. PT TO BE TRANSFERRED TO SNF TODAY. ALL QUESTIONS AND CONCERNS ADDRESSED.
--- NOTE | 2018-09-13 07:04 | NUR ---
RECEIVED REPORT FROM ANNETTE LOUIE. PATIENT RESTING COMFORTABLY IN BED WITH DAUGHTER AT BEDSIDE. MIDLINE NOTED TO SALINA. NO REDNESS OR PAIN. PT ON O2 2L NC. NO DISTRESS NOTED. AV SHUNT TO ROSAMARIA. PT TO BE TRANSFERRED TO SNF TODAY. ALL QUESTIONS AND CONCERNS ADDRESSED.
[2018-09-13] MEDS ORDERED: CARVEDILOL12.5 M1 PO (07:06)
[2018-09-13] MEDS ORDERED: BG FS (07:06)
[2018-09-13] MEDS ORDERED: HUMULIN R100 U/1 M1 SC (07:07)
[2018-09-13 09:29] VITALS: BP 129/60
--- NOTE | 2018-09-13 09:59 | NUR ---
NOTIFIED DR HALEY OF [facility] 2.2 AND MIDLINE NOT FLUSHING. TO PLACE ORDERS.
--- NOTE | 2018-09-13 10:07 | NUR ---
NOTIFIED DR HALEY OF PLT YESTERDAY OF 119 DR CAITLIN RANGEL TO ORDER HEPARIN TO FLUSH MIDLINE.
[2018-09-13 12:14] VITALS: BP 129/60
--- NOTE | 2018-09-13 13:10 | NUR ---
CALLED REPORT TO [facility] AND SPOKE WITH DANTE. ALL QUESTIONS AND CONCERNS ADDRESSED. PHONE NUMBER GIVEN IN CASE SHE HAS ANY QUESTIONS. AWAITING TRANSPORTATION SCHEDULED TO ARRIVE AT 13:00.
--- NOTE | 2018-09-13 14:29 | NUR ---
REPORT GIVEN TO [facility] PATIENT IS STABLE FOR TRANSFER PER MD. MIDLINE TO SALINA REMAINS PER MD ORDER. DISCHARGE INSTRUCTION DISCUSSED WITH DAUGHTER ROSANNE. ROSANNE VERBALIZED UNDERSTANDING AND AGREES TO FOLLOWUP APPOINTMENT WITH PRIMARY DOCTOR. ID BANDS CUT AND IV POLE CLEARED. PT ESCORTED OFF FLOOR VIA [facility]. ALSO NOTIFIED DANTE AT [facility] OF SKIN TEAR TO RECTUM.
[2018-09-13] MEDS ORDERED: AMERINET CHOICE1 PD3 IV (15:55)
[2018-09-13] MEDS ORDERED: ACT30 PO (16:26)
== END 2018-09-13 14:29 | DRG 177 ==
LOC: ED 00:49 → DU 03:02 → MU 03:02 → DU 05:12 → MU 16:26 → DU 09-07 10:35 → MU 09-10 15:12
PROVIDERS: Emergency Medicine; Internal Medicine; Internal Medicine Nephrology; ADMIT Internal Medicine
PROC: 0W9B3ZZ Drainage of Left Pleural Cavity, Percutaneous Approach (ICD-10-PCS; principal; 2018-09-05)
PROC: 0W9B3ZZ Drainage of Left Pleural Cavity, Percutaneous Approach (ICD-10-PCS; 2018-09-08)
PROC: 0W9B3ZZ Drainage of Left Pleural Cavity, Percutaneous Approach (ICD-10-PCS; 2018-09-09)
PROC: 05HY33Z Insertion of Infusion Device into Upper Vein, Percutaneous Approach (ICD-10-PCS; 2018-09-11)
DX: J69.0 Pneumonitis due to inhalation of food and vomit (principal); I21.A1 Myocardial infarction type 2; J96.21 Acute and chronic respiratory failure with hypoxia; I50.33 Acute on chronic diastolic (congestive) heart failure; N18.6 End stage renal disease; E43 Unspecified severe protein-calorie malnutrition; I13.2 Hypertensive heart and chronic kidney disease with heart failure and with stage 5 chronic kidney disease, or end stage renal disease; J91.8 Pleural effusion in other conditions classified elsewhere; I69.354 Hemiplegia and hemiparesis following cerebral infarction affecting left non-dominant side; R64 Cachexia; I24.9 Acute ischemic heart disease, unspecified; E11.22 Type 2 diabetes mellitus with diabetic chronic kidney disease; E83.39 Other disorders of phosphorus metabolism; D63.1 Anemia in chronic kidney disease; Z99.3 Dependence on wheelchair; Z99.2 Dependence on renal dialysis; Z83.3 Family history of diabetes mellitus; Z68.30 Body mass index [BMI] 30.0-30.9, adult
CPT/HCPCS: 32555; 82962; 83880; 84439; 88344; 92526-GN; 92610; C1729; C1751; G0378; J0360; J1642; J1940; J2001; J2543; J3490; J7030; J7050; J7620; Q0092

== ENCOUNTER → 2018-10-17 | Outpatient (CLI) | payer OTHER ==
[~2018-10-17] MED LIST changes: +AMERINET CHOICE1 PD3 IV; +BAYER ASPIRIN R81 MG PO; +BG FS; +CARVEDILOL12.5 M1 PO; +EPZICOM1 TAB; +HYDRALAZINE HCL25 MG PO; +IPRATROPIUM BROM3 M2 HHN; +NIFEDIPINE30 MG PO; +NIFEDIPINE60 MG PO
== END | disposition home or self-care (01) ==
LOC: RD 12:14
DX: R06.02 Shortness of breath (principal)

== ENCOUNTER 2019-01-09 09:13 | Inpatient (IN) | payer OTHER ==
[~2019-01-09] VITALS: Ht 144.8 cm; Wt 36.4 kg
[2019-01-09 09:19] VITALS: Ht 144.8 cm; Wt 36.4 kg
[2019-01-09] MEDS ORDERED: PRO30 PO (09:29)
[2019-01-09] MEDS ORDERED: LOSARTAN POTASS25 M1 PO (09:30)
[2019-01-09] MEDS ORDERED: STOOL SOFTENER50 MG (09:31)
[2019-01-09 10:52] LABS: BASOPHIL % 1.1 % (0-2); PLATELET COUNT 195 x10^3mcL (130-400)
[2019-01-09 11:17] LABS: RED CELL DISTRIBUTION WIDTH 19.8 % (11.5-14.5)
[2019-01-09 11:39] LABS: ALKALINE PHOSPHATASE 158 U/L (46-116); ALT/SGPT 14 U/L (14-59); CALCIUM 7.5 mg/dL (8.5-10.1); CARBON DIOXIDE 27.6 mmol/L (21-32); CHLORIDE SERUM 97 mmol/L (98-107); GLUCOSE SERUM 170 mg/dL (74-106); POTASSIUM SERUM 5.1 mmol/L (3.5-5.1); SODIUM SERUM 136 mmol/L (136-145); TOTAL PROTEIN, SERUM 6.6 g/dL (6.4-8.2)
[2019-01-09 11:40] LABS: ALBUMIN 2.7 g/dL (3.4-5.0)
[2019-01-09 12:03] LABS: AST/SGOT 16 U/L (15-37); BILIRUBIN TOTAL 0.41 mg/dL (0.20-1.00); CREATININE SERUM 3.3 mg/dL (0.6-1.0)
[2019-01-09 13:17] VITALS: BP 133/45
[2019-01-09 14:06] LABS: rbc morphology (normal/abnorm) NORMAL (NORMAL)
[2019-01-09 15:48] VITALS: BP 111/35
[2019-01-09 16:55] VITALS: BP 102/35
[2019-01-09 20:38] VITALS: BP 157/51
[2019-01-10 05:50] VITALS: BP 164/39
[2019-01-10 06:41] LABS: BASOPHIL % 1.2 % (0-2); PLATELET COUNT 169 x10^3mcL (130-400)
[2019-01-10 06:58] LABS: CALCIUM 8.3 mg/dL (8.5-10.1); CARBON DIOXIDE 26.8 mmol/L (21-32); CHLORIDE SERUM 102 mmol/L (98-107); CREATININE SERUM 1.8 mg/dL (0.6-1.0); GLUCOSE SERUM 98 mg/dL (74-106); POTASSIUM SERUM 3.1 mmol/L (3.5-5.1); SODIUM SERUM 141 mmol/L (136-145)
[2019-01-10 07:37] LABS: RED CELL DISTRIBUTION WIDTH 26.2 % (11.5-14.5)
[2019-01-10 08:19] VITALS: BP 102/59
[2019-01-10 13:32] LABS: rbc morphology (normal/abnorm) ABNORMAL (NORMAL)
[2019-01-10 16:21] VITALS: BP 156/49
[2019-01-10 16:42] VITALS: BP 135/44
[2019-01-10 20:57] VITALS: BP 142/38
[2019-01-11 05:33] VITALS: BP 126/43
[2019-01-11 06:27] LABS: CALCIUM 7.6 mg/dL (8.5-10.1); CARBON DIOXIDE 27.7 mmol/L (21-32); CHLORIDE SERUM 102 mmol/L (98-107); CREATININE SERUM 2.8 mg/dL (0.6-1.0); GLUCOSE SERUM 109 mg/dL (74-106); POTASSIUM SERUM 4.4 mmol/L (3.5-5.1); SODIUM SERUM 141 mmol/L (136-145)
[2019-01-11 07:00] LABS: BASOPHIL % 0.8 % (0-2); PLATELET COUNT 172 x10^3mcL (130-400)
[2019-01-11 07:13] LABS: RED CELL DISTRIBUTION WIDTH 26.8 % (11.5-14.5)
[2019-01-11 08:59] VITALS: BP 192/55
[2019-01-11] MEDS ORDERED: FERROUS SULFAT325 M2 PO (10:24)
[2019-01-11 11:48] VITALS: BP 152/39
[2019-01-11 13:02] LABS: rbc morphology (normal/abnorm) NORMAL (NORMAL)
[2019-01-11 15:19] VITALS: BP 140/47
== END 2019-01-11 16:25 | disposition home or self-care (01) | DRG 377 ==
LOC: ED 09:13 → DU 11:48
PROVIDERS: Emergency Medicine; Internal Medicine; ADMIT Internal Medicine
PROC: 30233N1 Transfusion of Nonautologous Red Blood Cells into Peripheral Vein, Percutaneous Approach (ICD-10-PCS; 2019-01-09)
PROC: 5A1D70Z Performance of Urinary Filtration, Intermittent, Less than 6 Hours Per Day (ICD-10-PCS; 2019-01-09)
PROC: 0W3P8ZZ Control Bleeding in Gastrointestinal Tract, Via Natural or Artificial Opening Endoscopic (ICD-10-PCS; principal; 2019-01-10 08:00)
DX: K92.2 Gastrointestinal hemorrhage, unspecified (principal); E43 Unspecified severe protein-calorie malnutrition; N18.6 End stage renal disease; I13.2 Hypertensive heart and chronic kidney disease with heart failure and with stage 5 chronic kidney disease, or end stage renal disease; I69.354 Hemiplegia and hemiparesis following cerebral infarction affecting left non-dominant side; Z68.1 Body mass index [BMI] 19.9 or less, adult; I50.9 Heart failure, unspecified; D50.0 Iron deficiency anemia secondary to blood loss (chronic); E11.22 Type 2 diabetes mellitus with diabetic chronic kidney disease; Z99.2 Dependence on renal dialysis; Z86.73 Personal history of transient ischemic attack (TIA), and cerebral infarction without residual deficits; Z83.3 Family history of diabetes mellitus; Z99.3 Dependence on wheelchair
CPT/HCPCS: 43235; 82962; 97110-GP; 97112-GP; 97530-GP; C9113; G0378; J1200; J1610; J2250; J2310; J3010; J3490; J7030; J7040; J7050; P9016; Q0092

== ENCOUNTER → 2019-08-02 | Outpatient (CLI) | payer OTHER ==
[~2019-08-02] MED LIST changes: +FERROUS SULFAT325 M2 PO; +STOOL SOFTENER50 MG
== END | disposition home or self-care (01) ==
LOC: RD 14:48
DX: J90 Pleural effusion, not elsewhere classified (principal)
CPT/HCPCS: Q0092